=== PATIENT | female | born 1975 | race Caucasian/White ===

== ENCOUNTER 2019-12-12 10:32 | Inpatient (IN) | payer OTHER ==
[2019-12-12] MEDS ORDERED: MORPHINE 4 MG/1 ML INJ IV ONE (11:09)
[2019-12-12] MEDS ORDERED: ONDANSETRON 4 MG/2 ML INJ IV ONE (11:09)
[2019-12-12] MEDS ORDERED: ASPIRIN 325 MG TAB PO ONE (11:10)
[2019-12-12] MEDS ORDERED: SODIUM CHLORIDE 0.9% 1000 ML 1,000 ML IV ONE (11:11)
--- NOTE | 2019-12-12 11:11 | Emergency Department Report ---
HPI - General Chief Complaint: Hyperglycemia Time Seen by Provider: 12/12/19 11:00 - [facility] HPI: Room 20 The patient is a 44-year-old female present with a chief complaint of shortness of breath and chest pain. Patient symptoms began last night with shortness of breath and a constant sharp substernal chest pain. Patient noticed her blood sugar was elevated as well. Patient has been out of her insulin for 3 days. Patient has a cough that is nonproductive. Patient also developed nausea vomiting and diarrhea last night. ED Past Medical Hx - Past Medical History Previous Medical History?: Yes Hx Diabetes: Yes - Surgical History Past Surgical History?: No - Family History Family history: no significant - Social History Smoking Status: Never Smoker Substance Use Type: None - Medications Home Medications: Home Medications Medication Instructions Recorded Confirmed Last Taken Type Famotidine [Pepcid] 20 mg PO BID #60 tablet 10/02/14 Unknown Rx Lisinopril [Zestril] 2.5 mg PO QDAY #30 tablet 10/02/14 Unknown Rx Insulin Aspart Prot/Aspart(Nf) 15 unit SQ BIDDIAB #10 ml 01/09/15 Unknown Rx [NovoLOG Mix 70/30 VIAL] Insulin Glargine [Lantus VIAL] 20 units SUB-Q QAM@0800 #7 units 01/09/15 Unknown Rx ED Review of Systems ROS: Stated complaint: ALESSANDRA Other details as noted in HPI Constitutional: no symptoms reported Eyes: denies: eye pain ENT: denies: throat pain Respiratory: cough, shortness of breath Cardiovascular: chest pain Endocrine: no symptoms reported Gastrointestinal: nausea, vomiting, diarrhea Genitourinary: denies: dysuria Musculoskeletal: denies: back pain Neurological: denies: headache Physical Exam - Physical Exam Vital Signs: Vital Signs 12/12/19 10:37 Temperature 98.0 F Pulse Rate 105 H Respiratory 24 Rate Blood Pressure 95/47 O2 Sat by Pulse 100 Oximetry Physical Exam: GENERAL: The patient is well-developed well-nourished female lying on stretcher not appearing to be in acute distress. [] HEENT: Normocephalic. Atraumatic. Extraocular motions are intact. Patient has moist mucous membranes. NECK: Supple. trachea midline CHEST/LUNGS: Clear to auscultation. There is no respiratory distress noted. HEART/CARDIOVASCULAR: Regular. There is no tachycardia. There is no gallop rub or murmur. ABDOMEN: Abdomen is soft, nontender. Patient has normal bowel sounds. There is no abdominal distention. SKIN: There is no rash. There is no edema. There is no diaphoresis. NEURO: The patient is awake, alert, and oriented. The patient is cooperative. The patient has normal speech MUSCULOSKELETAL: There is no evidence of acute injury. ED Course Vital Signs 12/12/19 10:37 Temperature 98.0 F Pulse Rate 105 H Respiratory 24 Rate Blood Pressure 95/47 O2 Sat by Pulse 100 Oximetry ED Medical Decision Making - Lab Data Result diagrams: 12/12/19 11:09 12/12/19 11:09 Laboratory Tests 12/12/19 12/12/19 12/12/19 11:09 11:09 11:09 WBC 28.8 H RBC 5.55 H Hgb 15.6 H Hct 49.8 H MCV 90 MCH 28 MCHC 31 RDW 14.4 Plt Count 292 VBG pH 7.126 L* Sodium 138 Potassium 4.5 Chloride 91.2 L BUN 26 H Creatinine 1.6 H Estimated GFR 35 BUN/Creatinine Ratio 16 POC Glucose Calcium 10.2 Total Bilirubin 0.30 AST 17 ALT 17 Alkaline Phosphatase 157 H Total Creatine Kinase 159 H CK-MB (CK-2) 5.7 H CK-MB (CK-2) Rel Index 3.5 Troponin T < 0.010 NT-Pro-B Natriuret Pep 156.8 Total Protein 8.3 H Albumin 4.9 Albumin/Globulin Ratio 1.4 12/12/19 11:26 WBC RBC Hgb Hct MCV MCH MCHC RDW Plt Count VBG pH Sodium Potassium Chloride BUN Creatinine Estimated GFR BUN/Creatinine Ratio POC Glucose 500 H Calcium Total Bilirubin AST ALT Alkaline Phosphatase Total Creatine Kinase CK-MB (CK-2) CK-MB (CK-2) Rel Index Troponin T NT-Pro-B Natriuret Pep Total Protein Albumin Albumin/Globulin Ratio - EKG Data -: EKG Interpreted by Me EKG shows normal: sinus rhythm Rate: tachycardia (102 bpm) - EKG Data When compared to previous EKG there are: previous EKG unavailable Interpretation: other (No ischemic changes seen) - Radiology Data Radiology results: report reviewed (Chest x-ray) Chest x-ray (read by radiologist)-no acute abnormality - Differential Diagnosis ACS, DKA, hyperglycemia Critical care attestation.: If time is entered above; I have spent that time in minutes in the direct care of this critically ill patient, excluding procedure time. ED Disposition Clinical Impression: DKA (diabetic ketoacidoses), Leukocytosis, Chest pain Disposition: OP ADMIT IP TO THIS HOSP Is pt being admited?: Yes Does the pt Need Aspirin: Yes Condition: Serious Instructions: Diabetic Ketoacidosis (ED), Chest Pain (ED) Time of Disposition: 11:50 (Hospitalist paged (Dr Kumar))
[2019-12-12 11:27] LABS: Hematocrit 49.8 % (30.3-42.9); Hemoglobin 15.6 gm/dl (10.1-14.3); Mean Corpuscular HGB Conc 31 % (30-34); Mean Corpuscular Volume 90 fl (79-97); Platelet Count 292 K/mm3 (140-440); Red Blood Count 5.55 M/mm3 (3.65-5.03); Red Cell Distribution Width 14.4 % (13.2-15.2)
--- NOTE | 2019-12-12 11:34 | XRay Report ---
CHEST 1 VIEW 11:21 AM INDICATION / CLINICAL INFORMATION: Shortness of breath. COMPARISON: 09/28/14. FINDINGS: SUPPORT DEVICES: None. HEART / MEDIASTINUM: The heart size and pulmonary vasculature are normal. LUNGS / PLEURA: No significant pulmonary or pleural abnormality. No pneumothorax. ADDITIONAL FINDINGS: No significant additional findings. IMPRESSION: No acute abnormality or significant change. Signer Name: Lucian Ferraro MD Signed: 12/12/2019 11:29 AM Workstation Name: [id number]
[2019-12-12 11:39] LABS: Creatine Kinase MB 5.7 ng/mL (0.0-4.0)
[2019-12-12 11:44] LABS: Alanine Aminotransferase 17 units/L (7-56); Albumin 4.9 g/dL (3.9-5); BUN/Creatinine Ratio 16; Blood Urea Nitrogen 26 mg/dL (7-17); Calcium 10.2 mg/dL (8.4-10.2); Hemolysis Index 30
--- NOTE | 2019-12-12 11:54 | History and Physical Report ---
History of Present Illness Chief complaint: I do not feel good History of present illness: 44-year-old female with HTN, DM presents to ED for evaluation. Patient states that she has "not been feeling good" over the past 3 days with worsening symptoms over the past 1 day. Patient states that she ran out of her insulin approximately 3 days ago. Patient reports polydipsia, polyuria, polyphagia, and generalized weakness. Patient also acknowledges nonproductive cough, difficulty breathing, and chest discomfort. Patient acknowledges nausea, and 2 loose stools overnight. Patient transported to [facility] via private vehicle for further evaluation and care. Patient seen and evaluated in the emergency department. Lab and imaging studies reviewed. Patient found to have sepsis, acute kidney injury, metabolic acidosis, with concomitant diabetic ketoacidosis. Patient admitted to ICU and initiated on sepsis and DKA protocols respectively. Patient denies fever, chills, hemoptysis, prolonged travel/interim mobility, unilateral leg swelling, individual/family history of DVT/bleeding/blood clotting disorders. All listed medication reconciled at time of admission. Prior admission on 09/28/2014 reviewed. CTA chest is pending at time of admission. Past History Past Medical History: diabetes, hypertension Past Surgical History: No surgical history, Other (Reviewed) Social history: . denies: smoking, alcohol abuse, prescription drug abuse Family history: diabetes, hypertension Medications and Allergies Allergies Allergy/AdvReac Type Severity Reaction Status Date / Time No Known Allergies Allergy Unverified 09/28/14 19:54 Home Medications Medication Instructions Recorded Confirmed Last Taken Type Lisinopril [Zestril] 2.5 mg PO QDAY #30 tablet 10/02/14 12/12/19 Unknown Rx Insulin Aspart Prot/Aspart(Nf) 15 unit SQ BIDDIAB #10 ml 01/09/15 12/12/19 Unknown Rx [NovoLOG Mix 70/30 VIAL] Insulin Glargine [Lantus VIAL] 20 units SUB-Q QAM@0800 #7 units 01/09/15 12/12/19 Unknown Rx Active Meds: Active Medications Sodium Chloride (Nacl 0.9% 1000 Ml) 1,000 mls @ 999 mls/hr IV ONCE ONE Stop: 12/12/19 12:11 Last Admin: 12/12/19 11:41 Dose: 999 mls/hr Documented by: Insulin Human Regular 100 (units/ Sodium Chloride) 100 mls @ 5 mls/hr IV TITR ADOLFO; Protocol Review of Systems Constitutional: weakness, other (Feeling sick) Ears, nose, mouth and throat: no ear pain, no ear discharge, no tinnitis, no decreased hearing, no nose pain Breasts: no change in shape, no swelling, no mass Cardiovascular: no chest pain, no orthopnea, no palpitations, no rapid/irregular heart beat Respiratory: cough, shortness of breath Gastrointestinal: nausea, vomiting, no change in bowel habits, no hematemesis, no coffee ground emesis Genitourinary Female: no pelvic pain, no flank pain, no dysuria, no urinary frequency, no urgency Rectal: no pain, no incontinence, no bleeding Musculoskeletal: no neck stiffness, no neck pain, no shooting arm pain, no arm numbness/tingling, no leg numbness/tingling Integumentary: no rash, no redness, no sores, no jaundice Neurological: no head injury, no transient paralysis, no paralysis, no weakness, no parathesias, no numbness, no tingling, no seizures, no syncope Psychiatric: no anxiety, no memory loss, no sleep disturbances, no insomnia, no change in appetite, no change in libido, no suicidal ideation Endocrine: no cold intolerance, no polyphagia, no excessive thirst, no polyuria, no excessive sweating Hematologic/Lymphatic: no easy bruising, no easy bleeding, no lymphadenopathy Allergic/Immunologic: no urticaria, no persistent infections, no anaphylaxis, no angioedema Exam - Constitutional Vitals: Temp Pulse Resp BP Pulse Ox 98.0 F 105 H 15 95/47 100 12/12/19 10:37 12/12/19 10:37 12/12/19 11:40 12/12/19 10:37 12/12/19 10:37 General appearance: Present: mild distress - EENT Eyes: Present: PERRL ENT: hearing intact, clear oral mucosa - Neck Neck: Present: supple, normal ROM - Respiratory Respiratory effort: normal Respiratory: bilateral: CTA - Cardiovascular Rhythm: other (Tachycardia) Heart Sounds: Present: S1 & S2. Absent: rub, click - Extremities Extremities: pulses symmetrical, No edema Peripheral Pulses: abnormal (Capillary refill greater than 3.5 seconds) - Abdominal General gastrointestinal: Present: soft, non-tender, non-distended, normal bowel sounds Female genitourinary: Present: normal - Integumentary Integumentary: Present: clear, warm, dry - Musculoskeletal Musculoskeletal: generalized weakness - Psychiatric Psychiatric: appropriate mood/affect, intact judgment & insight - Neurologic Neurologic: CNII-XII intact, moves all extremities Results - Labs CBC & Chem 7: 12/12/19 11:09 12/12/19 12:01 Labs: Abnormal lab results 12/12/19 12/12/19 12/12/19 Range/Units 11:09 11:09 11:09 WBC 28.8 H (4.5-11.0) K/mm3 RBC 5.55 H (3.65-5.03) M/mm3 Hgb 15.6 H (10.1-14.3) gm/dl Hct 49.8 H (30.3-42.9) % VBG pH 7.126 L* (7.320-7.420) Chloride 91.2 L (98-107) mmol/L Carbon Dioxide 5 L* (22-30) mmol/L BUN 26 H (7-17) mg/dL Creatinine 1.6 H (0.7-1.2) mg/dL Glucose 704 H* (65-100) mg/dL POC Glucose (70-105) Alkaline Phosphatase 157 H (35-129) units/L Total Creatine Kinase 159 H (30-135) units/L CK-MB (CK-2) 5.7 H (0.0-4.0) ng/mL Total Protein 8.3 H (6.3-8.2) g/dL 12/12/19 Range/Units 11:26 WBC (4.5-11.0) K/mm3 RBC (3.65-5.03) M/mm3 Hgb (10.1-14.3) gm/dl Hct (30.3-42.9) % VBG pH (7.320-7.420) Chloride (98-107) mmol/L Carbon Dioxide (22-30) mmol/L BUN (7-17) mg/dL Creatinine (0.7-1.2) mg/dL Glucose (65-100) mg/dL POC Glucose 500 H (70-105) Alkaline Phosphatase (35-129) units/L Total Creatine Kinase (30-135) units/L CK-MB (CK-2) (0.0-4.0) ng/mL Total Protein (6.3-8.2) g/dL Assessment and Plan - Patient Problems (1) Sepsis Current Visit: Yes Status: Acute Plan to address problem: Sepsis protocol: Admit to ICU, IV antibiotic therapy, CBC, CMP, chest x-ray, urinalysis, serial lactic acid level, monitor urine output every shift, maintain mean arterial blood pressure greater than or equal to 65, IV fluid resuscitation therapy, repeat CBC and BMP in a.m. The high probability of a clinically significant, sudden or life threatening deterioration of the [endocrine, cardiac, renal, pulmonary] system(s) required my full and direct attention, intervention and personal management. The aggregate critical care time was [65] minutes. This time is in addition to time spent performing reported procedures but includes the following: [x] Data Review and interpretation [x] Patient assessment and monitoring of vital signs [x] Documentation [x] Medication orders and management (2) DKA (diabetic ketoacidoses) Current Visit: No Status: Acute Qualifiers: Diabetes mellitus type: type 1 Plan to address problem: DKA protocol: Admit to ICU, IV fluid resuscitation therapy, insulin drip, serial BMP, monitor anion gap, monitor serum potassium, (3) Noncompliance with medication regimen Current Visit: Yes Status: Acute Plan to address problem: Patient counseled regarding medication noncompliance. Patient informed of increased risk of worsening symptoms, end organ damage, and even . Patient knowledges understanding instructions. (4) Acute kidney injury Current Visit: Yes Status: Acute Plan to address problem: IV fluid resuscitation therapy, monitor urine output every shift, BMP, repeat BMP in a.m. to monitor serum creatinine. (5) Metabolic acidosis Current Visit: Yes Status: Acute Plan to address problem: IV fluid resuscitation therapy, treat DKA, treat sepsis, serial lactic acid level. (6) DVT prophylaxis Current Visit: No Status: Acute Plan to address problem: SCD to bilateral lower extremities while in bed, prophylactic heparin.
[2019-12-12] MEDS ORDERED: SODIUM CHLORIDE 0.9% 1000 ML IV SOLN IV ONE (11:59)
[2019-12-12 12:56] LABS: Calcium 9.7 mg/dL (8.4-10.2)
[2019-12-12] MEDS ORDERED: cefTRIAXone/NS 1 GM/50 ML 1 GM/50 ML BAG IV ONE (12:59)
[2019-12-12] MEDS: cefTRIAXone/NS 1 GM/50 ML 1 GM/50 ML BAG IV SCH (13:00)
[2019-12-12] MEDS ORDERED: SODIUM BICARB 8.4% 50 MEQ/50 ML VIAL IV ONE (13:00)
[2019-12-12] MEDS: INSULIN REGULAR, HUMAN 100 UNITS in SODIUM CHLORIDE 0.9% 99 ML IV SCH (13:49)
[2019-12-12] MEDS ORDERED: SODIUM CHLORIDE 0.9% 1000 ML 1,000 ML IV SCH (15:00)
[2019-12-12 15:18] LABS: Calcium 8.3 mg/dL (8.4-10.2)
--- NOTE | 2019-12-12 15:27 | Consultation ---
History of Present Illness Consult date: 12/12/19 Requesting physician: FLAVIO LONGO Reason for consult: other (CRITICAL CARE-DKA) History of present illness: 44-year-old female with HTN, DM presents to ED for evaluation. Patient states that she has "not been feeling good" over the past 3 days with worsening symptoms over the past 1 day. Patient states that she ran out of her insulin approximately 3 days ago. Patient reports polydipsia, polyuria, polyphagia, and generalized weakness. Patient also acknowledges nonproductive cough, difficulty breathing, and chest discomfort. Patient acknowledges nausea, and 2 loose stools overnight. Patient transported to [facility] via private vehicle for further evaluation and care. Patient seen and evaluated in the emergency department. Lab and imaging studies reviewed. Patient found to have sepsis, acute kidney injury, metabolic acidosis, with concomitant diabetic ketoacidosis. Patient admitted to ICU and initiated on sepsis and DKA protocols respectively. Patient denies fever, chills, hemoptysis, prolonged travel/interim mobility, unilateral leg swelling, individual/family history of DVT/bleeding/blood clotting disorders. She has been admitted to the ICU for management of DKA and I have been consulted fro critical care management. Thank you. Patient was seen and examined. Vitals, labs, medications, chart reviewed. ROS: Stated complaint: ALESSANDRA Other details as noted in HPI Constitutional: no symptoms reported Eyes: denies: eye pain ENT: denies: throat pain Respiratory: cough, shortness of breath Cardiovascular: chest pain Endocrine: no symptoms reported Gastrointestinal: nausea, vomiting, diarrhea Genitourinary: denies: dysuria Musculoskeletal: denies: back pain Neurological: denies: headache Past History Past Medical History: diabetes, hypertension Past Surgical History: No surgical history, Other (Reviewed) Social history: . denies: smoking, alcohol abuse, prescription drug abuse Family history: diabetes, hypertension Medications and Allergies Allergies Allergy/AdvReac Type Severity Reaction Status Date / Time No Known Allergies Allergy Unverified 09/28/14 19:54 Home Medications Medication Instructions Recorded Confirmed Last Taken Type Lisinopril [Zestril] 2.5 mg PO QDAY #30 tablet 10/02/14 12/12/19 Unknown Rx Insulin Aspart Prot/Aspart(Nf) 15 unit SQ BIDDIAB #10 ml 01/09/15 12/12/19 Unknown Rx [NovoLOG Mix 70/30 VIAL] Insulin Glargine [Lantus VIAL] 20 units SUB-Q QAM@0800 #7 units 01/09/15 12/12/19 Unknown Rx Active Meds: Active Medications Famotidine (Pepcid) 20 mg PO BID ADOLFO Heparin Sodium (Porcine) (Heparin) 5,000 unit SUB-Q Q12HR ADOLFO Insulin Human Regular 100 (units/ Sodium Chloride) 100 mls @ 5 mls/hr IV TITR ADOLFO; Protocol Last Titration: 12/12/19 14:30 Dose: 7 units/hr, 7 mls/hr Documented by: Ceftriaxone Sodium (Rocephin/Ns 1 Gm/50 Ml) 1 gm in 50 mls @ 100 mls/hr IV Q24H ADOLFO; Protocol Stop: 12/14/19 13:29 Last Admin: 12/12/19 13:00 Dose: 100 mls/hr Documented by: Sodium Chloride (Nacl 0.9% 1000 Ml) 1,000 mls @ 125 mls/hr IV DIRECT ADOLFO Last Admin: 12/12/19 14:57 Dose: 125 mls/hr Documented by: Dextrose/Sodium Chloride (D5/0.45ns) 1,000 mls @ 125 mls/hr IV DIRECT ADOLFO Sodium Chloride (Sodium Chloride Flush Syringe 10 Ml) 10 ml IV BID ADOLFO Sodium Chloride (Sodium Chloride Flush Syringe 10 Ml) 10 ml IV PRN PRN PRN Reason: LINE FLUSH Physical Examination Vital signs: Vital Signs Temp Pulse Resp BP Pulse Ox 98.0 F 105 H 24 95/47 100 12/12/19 10:37 12/12/19 10:37 12/12/19 10:37 12/12/19 10:37 12/12/19 10:37 Vitals, reviewed. General appearance: Present: no distress - EENT Eyes: Present: PERRL ENT: hearing intact, clear oral mucosa - Neck Neck: Present: supple, normal ROM - Respiratory Respiratory effort: normal Respiratory: bilateral: CTA - Cardiovascular Rhythm: other (Tachycardia) Heart Sounds: Present: S1 & S2. Absent: rub, click - Extremities Extremities: pulses symmetrical, No edema Peripheral Pulses: abnormal (Capillary refill greater than 3.5 seconds) - Abdominal General gastrointestinal: Present: soft, non-tender, non-distended, normal bowel sounds Female genitourinary: Present: normal - Integumentary Integumentary: Present: clear, warm, dry - Musculoskeletal Musculoskeletal: generalized weakness - Psychiatric Psychiatric: appropriate mood/affect - Neurologic Neurologic: Moves all extremities Results - Laboratory Findings CBC and BMP: 12/13/19 05:26 12/14/19 05:42 Abnormal lab findings: Abnormal Labs 12/12/19 12/12/19 12/12/19 10:50 11:09 11:09 WBC 28.8 H RBC 5.55 H Hgb 15.6 H Hct 49.8 H VBG pH Chloride 91.2 L Carbon Dioxide 5 L* BUN 26 H Creatinine 1.6 H Glucose 704 H* POC Glucose 492 H Lactic Acid Calcium Phosphorus Alkaline Phosphatase 157 H Total Creatine Kinase 159 H CK-MB (CK-2) 5.7 H Total Protein 8.3 H 12/12/19 12/12/19 12/12/19 11:09 11:26 12:01 WBC RBC Hgb Hct VBG pH 7.126 L* Chloride Carbon Dioxide BUN Creatinine Glucose POC Glucose 500 H Lactic Acid Calcium Phosphorus 6.90 H Alkaline Phosphatase Total Creatine Kinase CK-MB (CK-2) Total Protein 12/12/19 12/12/19 12/12/19 12:01 12:04 14:24 WBC RBC Hgb Hct VBG pH Chloride 95.6 L Carbon Dioxide 5 L* BUN 26 H Creatinine 1.4 H Glucose 653 H* POC Glucose 443 H Lactic Acid 3.00 H* Calcium Phosphorus Alkaline Phosphatase Total Creatine Kinase CK-MB (CK-2) Total Protein 12/12/19 12/12/19 12/12/19 14:38 14:38 14:52 WBC RBC Hgb Hct VBG pH Chloride Carbon Dioxide 6 L* BUN 23 H Creatinine Glucose 427 H POC Glucose 371 H Lactic Acid 2.10 H* Calcium 8.3 L Phosphorus Alkaline Phosphatase Total Creatine Kinase CK-MB (CK-2) Total Protein - Diagnostic Findings Chest x-ray: image reviewed CT scan - chest: report reviewed (Normal study, no PE) Assessment and Plan (1) Sepsis Current Visit: Yes Status: Acute Plan to address problem: Sepsis protocol:Continue with ICU admission. IV antibiotic therapy( follow cu ltures, RACHID and sensitivities- deescalate based on results), CBC, CMP, chest x- ray, urinalysis, serial lactic acid level, monitor urine output every shift, maintain mean arterial blood pressure greater than or equal to 65, IV fluid resuscitation therapy, repeat CBC and BMP in a.m. The high probability of a clinically significant, sudden or life threatening deterioration of the [endocrine, cardiac, renal, pulmonary] system(s) required my full and direct attention, intervention and personal management. The aggregate critical care time was [30] minutes. This time is in addition to time spent performing reported procedures but includes the following: [x] Data Review and interpretation [x] Patient assessment and monitoring of vital signs [x] Documentation [x] Medication orders and management (2) DKA (diabetic ketoacidosis) Current Visit: No Status: Acute Qualifiers: Diabetes mellitus type: type 1 Plan to address problem: DKA protocol: Admit to ICU, IV fluid resuscitation therapy, insulin drip, serial BMP, monitor anion gap, monitor serum potassium, Replace all electrolytes per protocol Once her gap closes switch to weight based/bolus insulin therapy and initiate oral steady carb diet (3) Noncompliance with medication regimen Current Visit: Yes Status: Acute Plan to address problem: Patient counseled regarding medication noncompliance. Patient informed of increased risk of worsening symptoms, end organ damage, and even . Patient knowledges understanding instructions. Change lantus to 70/30 Case management/nephrology social worker to assist with medication management (4) Acute kidney injury Current Visit: Yes Status: Acute Plan to address problem: IV fluid resuscitation therapy, monitor urine output every shift, BMP, repeat BMP in a.m. to monitor serum creatinine. (5) Metabolic acidosis Current Visit: Yes Status: Acute Plan to address problem: IV fluid resuscitation therapy, treat DKA, treat sepsis, serial lactic acid level. (6) DVT prophylaxis Current Visit: No Status: Acute Plan to address problem: SCD to bilateral lower extremities while in bed, prophylactic heparin.
[2019-12-12 16:28] LABS: Bilirubin,Urine NEG (Negative); Blood,Urine MOD (Negative); Color,Urine Straw (Yellow); Mucus,Urine FEW /HPF; Protein,Urine <15 mg/dL mg/dL (Negative); Urobilinogen,Urine < 2.0 mg/dL (<2.0); WBC,Urine < 1.0 /HPF (0.0-6.0)
[2019-12-12 17:04] LABS: Calcium 8.6 mg/dL (8.4-10.2)
[2019-12-12] MEDS: ONDANSETRON 4 MG/2 ML INJ IV PRN ×2 (17:14→22:27)
[2019-12-12] MEDS: D5W/0.45% NACL 1,000 ML IV SCH ×2 (17:19→22:27)
[2019-12-12] MEDS ORDERED: SODIUM CHLORIDE 0.9% 1000 ML 2,000 ML IV ONE (19:00)
[2019-12-12 20:11] LABS: BUN/Creatinine Ratio 17; Blood Urea Nitrogen 17 mg/dL (7-17); Calcium 8.2 mg/dL (8.4-10.2); Hemolysis Index 8
[2019-12-12] MEDS ORDERED: FAMOTIDINE 20 MG TAB PO SCH (22:00)
[2019-12-12 22:24] LABS: BUN/Creatinine Ratio 16; Blood Urea Nitrogen 14 mg/dL (7-17); Calcium 8.1 mg/dL (8.4-10.2); Hemolysis Index 4
[2019-12-12] MEDS: HEPARIN 5,000 UNIT/1 ML VIAL SUB-Q SCH (22:27)
--- NOTE | 2019-12-12 23:58 | Cat Scan Report ---
CTA CHEST WITH IV CONTRAST INDICATION / CLINICAL INFORMATION: MAIN: WEAKNESS, CHEST PAIN, SOB. 100 ML OMNIPAQUE 350. TECHNIQUE: Axial CT images were obtained through the chest after injection of 100 mL IV contrast. 3 plane MIP an d/or 3D reconstructions were produced. All CT scans at this location are performed using CT dose redu ction for [facility] by means of automated exposure control. COMPARISON: Chest radiograph earlier today. FINDINGS: PULMONARY ARTERIES: No pulmonary emboli. THORACIC AORTA: No significant abnormality. HEART: No significant abnormality. CORONARY ARTERIES: No significant calcification. PLEURA: No pleural effusion. No pneumothorax. LYMPH NODES: No significant adenopathy. LUNGS: No acute air space or interstitial disease. ADDITIONAL FINDINGS: None. UPPER ABDOMEN: No acute findings. SKELETAL STRUCTURES: No significant osseous abnormality. IMPRESSION: 1. No CT evidence for pulmonary embolism. 2. No acute findings. Signer Name: Shalini Richmond MD Signed: 12/12/2019 11:53 PM Workstation Name: [id number]
[2019-12-13 05:37] LABS: Hematocrit 38.8 % (30.3-42.9); Hemoglobin 12.9 gm/dl (10.1-14.3); Mean Corpuscular HGB Conc 33 % (30-34); Mean Corpuscular Volume 84 fl (79-97); Platelet Count 237 K/mm3 (140-440); Red Cell Distribution Width 14.1 % (13.2-15.2)
[2019-12-13 06:11] LABS: BUN/Creatinine Ratio 10; Blood Urea Nitrogen 7 mg/dL (7-17); Calcium 8.3 mg/dL (8.4-10.2); Hemolysis Index 13
[2019-12-13 06:53] LABS: Band Neutrophils # (Manual) 0.2 K/mm3; Basophils % (Manual) 0 % (0.0-1.8); Eosinophils % (Manual) 0 % (0.0-4.3); Total Cells Counted 100
[2019-12-13 06:54] LABS: Ovalocytes Rare; Platelet Estimate Consistent w Auto
[2019-12-13] MEDS: ONDANSETRON 4 MG/2 ML INJ IV PRN ×3 (08:17→23:28)
[2019-12-13] MEDS: D5W/0.45% NACL/KCL 20 MEQ 20 MEQ/1,000 ML BAG IV SCH ×2 (09:40→23:19)
[2019-12-13] MEDS: HEPARIN 5,000 UNIT/1 ML VIAL SUB-Q SCH ×2 (09:43→22:05)
[2019-12-13] MEDS: POTASSIUM CHLORIDE 10 MEQ 10 MEQ/100 ML BAG IV SCH ×7 (09:43→18:44)
[2019-12-13] MEDS: FAMOTIDINE 20 MG/2 ML INJ IV SCH ×2 (09:44→22:05)
--- NOTE | 2019-12-13 11:10 | Progress Note ---
Subjective Date of service: 12/13/19 Objective Vital Signs - 12hr 12/12/19 12/13/19 12/13/19 23:18 00:00 01:00 Temperature 99.3 F Pulse Rate 81 76 74 Pulse Rate [ From Monitor] Respiratory 29 H 22 15 Rate Blood Pressure 115/46 110/46 O2 Sat by Pulse 100 100 100 Oximetry 12/13/19 12/13/19 12/13/19 02:00 03:00 04:00 Temperature 98.4 F Pulse Rate 73 81 74 Pulse Rate [ From Monitor] Respiratory 15 13 17 Rate Blood Pressure 106/48 106/48 117/59 O2 Sat by Pulse 99 100 99 Oximetry 12/13/19 12/13/19 12/13/19 05:00 06:00 07:00 Temperature Pulse Rate 73 73 66 Pulse Rate [ From Monitor] Respiratory 11 L 12 16 Rate Blood Pressure 104/50 126/61 117/59 O2 Sat by Pulse 99 100 100 Oximetry 12/13/19 12/13/19 12/13/19 08:00 09:00 10:00 Temperature 98.8 F Pulse Rate 70 69 67 Pulse Rate [ 66 From Monitor] Respiratory 13 19 16 Rate Blood Pressure 130/58 130/58 137/64 O2 Sat by Pulse 100 100 99 Oximetry CBC and BMP: 12/13/19 05:26 12/13/19 05:26 Abnormal lab findings: Abnormal Labs 12/12/19 12/12/19 12/12/19 10:50 11:09 11:09 WBC 28.8 H RBC 5.55 H Hgb 15.6 H Hct 49.8 H Seg Neuts % (Manual) Lymphocytes % (Manual) Seg Neutrophils # Man Lymphocytes # (Manual) Monocytes # (Manual) VBG pH Sodium Potassium Chloride 91.2 L Carbon Dioxide 5 L* BUN 26 H Creatinine 1.6 H Glucose 704 H* POC Glucose 492 H Lactic Acid Calcium Phosphorus Alkaline Phosphatase 157 H Total Creatine Kinase 159 H CK-MB (CK-2) 5.7 H Total Protein 8.3 H 12/12/19 12/12/19 12/12/19 11:09 11:26 12:01 WBC RBC Hgb Hct Seg Neuts % (Manual) Lymphocytes % (Manual) Seg Neutrophils # Man Lymphocytes # (Manual) Monocytes # (Manual) VBG pH 7.126 L* Sodium Potassium Chloride Carbon Dioxide BUN Creatinine Glucose POC Glucose 500 H Lactic Acid Calcium Phosphorus 6.90 H Alkaline Phosphatase Total Creatine Kinase CK-MB (CK-2) Total Protein 12/12/19 12/12/19 12/12/19 12:01 12:04 14:24 WBC RBC Hgb Hct Seg Neuts % (Manual) Lymphocytes % (Manual) Seg Neutrophils # Man Lymphocytes # (Manual) Monocytes # (Manual) VBG pH Sodium Potassium Chloride 95.6 L Carbon Dioxide 5 L* BUN 26 H Creatinine 1.4 H Glucose 653 H* POC Glucose 443 H Lactic Acid 3.00 H* Calcium Phosphorus Alkaline Phosphatase Total Creatine Kinase CK-MB (CK-2) Total Protein 12/12/19 12/12/19 12/12/19 14:38 14:38 14:52 WBC RBC Hgb Hct Seg Neuts % (Manual) Lymphocytes % (Manual) Seg Neutrophils # Man Lymphocytes # (Manual) Monocytes # (Manual) VBG pH Sodium Potassium Chloride Carbon Dioxide 6 L* BUN 23 H Creatinine Glucose 427 H POC Glucose 371 H Lactic Acid 2.10 H* Calcium 8.3 L Phosphorus Alkaline Phosphatase Total Creatine Kinase CK-MB (CK-2) Total Protein 12/12/19 12/12/19 12/12/19 16:09 16:28 16:28 WBC RBC Hgb Hct Seg Neuts % (Manual) Lymphocytes % (Manual) Seg Neutrophils # Man Lymphocytes # (Manual) Monocytes # (Manual) VBG pH Sodium 146 H Potassium Chloride 107.7 H Carbon Dioxide 7 L* BUN 20 H Creatinine Glucose 279 H POC Glucose 268 H Lactic Acid 2.10 H* Calcium Phosphorus Alkaline Phosphatase Total Creatine Kinase CK-MB (CK-2) Total Protein 12/12/19 12/12/19 12/12/19 16:56 17:51 18:40 WBC RBC Hgb Hct Seg Neuts % (Manual) Lymphocytes % (Manual) Seg Neutrophils # Man Lymphocytes # (Manual) Monocytes # (Manual) VBG pH Sodium Potassium Chloride Carbon Dioxide BUN Creatinine Glucose POC Glucose 214 H 194 H 176 H Lactic Acid Calcium Phosphorus Alkaline Phosphatase Total Creatine Kinase CK-MB (CK-2) Total Protein 12/12/19 12/12/19 12/12/19 19:38 20:06 20:35 WBC RBC Hgb Hct Seg Neuts % (Manual) Lymphocytes % (Manual) Seg Neutrophils # Man Lymphocytes # (Manual) Monocytes # (Manual) VBG pH Sodium Potassium Chloride 111.4 H Carbon Dioxide 10 L BUN Creatinine Glucose 212 H POC Glucose 175 H 194 H Lactic Acid Calcium 8.2 L Phosphorus Alkaline Phosphatase Total Creatine Kinase CK-MB (CK-2) Total Protein 12/12/19 12/12/19 12/12/19 21:09 21:31 22:16 WBC RBC Hgb Hct Seg Neuts % (Manual) Lymphocytes % (Manual) Seg Neutrophils # Man Lymphocytes # (Manual) Monocytes # (Manual) VBG pH Sodium Potassium Chloride 111.2 H Carbon Dioxide 12 L BUN Creatinine Glucose 210 H POC Glucose 197 H 176 H Lactic Acid Calcium 8.1 L Phosphorus Alkaline Phosphatase Total Creatine Kinase CK-MB (CK-2) Total Protein 12/12/19 12/12/19 12/13/19 23:32 23:48 01:16 WBC RBC Hgb Hct Seg Neuts % (Manual) Lymphocytes % (Manual) Seg Neutrophils # Man Lymphocytes # (Manual) Monocytes # (Manual) VBG pH Sodium Potassium Chloride Carbon Dioxide BUN Creatinine Glucose POC Glucose 160 H 149 H 168 H Lactic Acid Calcium Phosphorus Alkaline Phosphatase Total Creatine Kinase CK-MB (CK-2) Total Protein 12/13/19 12/13/19 12/13/19 02:23 03:16 04:09 WBC RBC Hgb Hct Seg Neuts % (Manual) Lymphocytes % (Manual) Seg Neutrophils # Man Lymphocytes # (Manual) Monocytes # (Manual) VBG pH Sodium Potassium Chloride Carbon Dioxide BUN Creatinine Glucose POC Glucose 184 H 161 H 165 H Lactic Acid Calcium Phosphorus Alkaline Phosphatase Total Creatine Kinase CK-MB (CK-2) Total Protein 12/13/19 12/13/19 12/13/19 05:20 05:26 05:26 WBC 20.9 H RBC Hgb Hct Seg Neuts % (Manual) 91.0 H Lymphocytes % (Manual) 3.0 L Seg Neutrophils # Man 19.0 H Lymphocytes # (Manual) 0.6 L Monocytes # (Manual) 1.0 H VBG pH Sodium Potassium 3.1 L Chloride 109.3 H Carbon Dioxide 17 L BUN Creatinine Glucose 165 H POC Glucose 143 H Lactic Acid Calcium 8.3 L Phosphorus Alkaline Phosphatase Total Creatine Kinase CK-MB (CK-2) Total Protein 12/13/19 12/13/19 12/13/19 06:05 07:16 07:54 WBC RBC Hgb Hct Seg Neuts % (Manual) Lymphocytes % (Manual) Seg Neutrophils # Man Lymphocytes # (Manual) Monocytes # (Manual) VBG pH Sodium Potassium Chloride Carbon Dioxide BUN Creatinine Glucose POC Glucose 140 H 140 H 154 H Lactic Acid Calcium Phosphorus Alkaline Phosphatase Total Creatine Kinase CK-MB (CK-2) Total Protein 12/13/19 12/13/19 12/13/19 08:25 09:50 10:39 WBC RBC Hgb Hct Seg Neuts % (Manual) Lymphocytes % (Manual) Seg Neutrophils # Man Lymphocytes # (Manual) Monocytes # (Manual) VBG pH Sodium Potassium Chloride Carbon Dioxide BUN Creatinine Glucose POC Glucose 162 H 127 H 122 H Lactic Acid Calcium Phosphorus Alkaline Phosphatase Total Creatine Kinase CK-MB (CK-2) Total Protein
[2019-12-13] MEDS: INSULIN REGULAR, HUMAN 100 UNITS in SODIUM CHLORIDE 0.9% 99 ML IV SCH (11:34)
[2019-12-13] MEDS ORDERED: FLU VACC QUAD 2019-20 (3 YR UP)/PF 60 MCG/0.5 ML SYRINGE IM ONE (12:00)
[2019-12-13] MEDS ORDERED: PNEUMOCOCCAL 23 Valent 0.5 ML VIAL IM ONE (12:00)
[2019-12-13 12:03] LABS: BUN/Creatinine Ratio 10; Blood Urea Nitrogen 6 mg/dL (7-17); Calcium 8.3 mg/dL (8.4-10.2); Hemolysis Index 15
[2019-12-13] MEDS: cefTRIAXone/NS 1 GM/50 ML 1 GM/50 ML BAG IV SCH (13:34)
[2019-12-13] MEDS ORDERED: POTASSIUM CHLORIDE ER 20 MEQ TAB PO ONE (15:48)
--- NOTE | 2019-12-13 15:51 | Progress Note ---
Assessment and Plan / SIRS - with organ dysfunction OSMAN due to DKA blood cx negative, monitor off abx for now / DKA (diabetic ketoacidoses) DKA protocol: monitor at ICU, IV fluid resuscitation therapy, insulin drip, serial BMP, monitor anion gap, monitor serum potassium, / Noncompliance with medication regimen Patient counseled regarding medication noncompliance. Patient informed of increased risk of worsening symptoms, end organ damage, and even . Patient knowledges understanding instructions. /hypokalemia, cont to replete, monitor BMP, normal mg / Acute kidney injury, due to vasomotor nephropathy Cr was 1.6 on admission IV fluid resuscitation therapy, monitor urine output every shift, repeat BMP in a.m. to monitor serum creatinine. / Metabolic acidosis IV fluid resuscitation therapy, treat DKA, / DVT prophylaxis SCD to bilateral lower extremities while in bed, prophylactic heparin. The high probability of a clinically significant, sudden or life threatening deterioration of the [multiple] system(s) required my full and direct attention, intervention and personal management. The aggregate critical care time was [32] minutes. This time is in addition to time spent performing reported procedures but includes the following: [x] Data Review and interpretation [x] Patient assessment and monitoring of vital signs [x] Documentation [x] Medication orders and management Subjective Date of service: 12/13/19 Interval history: Patient seen and examined Still has high anion gap, on insulin drip, on D5NS - keep NPO Patient states that she ran out of medication Objective - Constitutional Vitals: Vital Signs - 12hr 12/13/19 12/13/19 12/13/19 04:00 05:00 06:00 Temperature 98.4 F Pulse Rate 74 73 73 Pulse Rate [ From Monitor] Respiratory 17 11 L 12 Rate Blood Pressure 117/59 104/50 126/61 O2 Sat by Pulse 99 99 100 Oximetry 12/13/19 12/13/19 12/13/19 07:00 08:00 09:00 Temperature 98.8 F Pulse Rate 66 70 69 Pulse Rate [ 66 From Monitor] Respiratory 16 13 19 Rate Blood Pressure 117/59 130/58 130/58 O2 Sat by Pulse 100 100 100 Oximetry 12/13/19 12/13/19 12/13/19 10:00 11:00 12:00 Temperature 98.7 F Pulse Rate 66 65 81 Pulse Rate [ 64 From Monitor] Respiratory 16 19 20 Rate Blood Pressure 137/64 116/48 130/55 O2 Sat by Pulse 99 100 98 Oximetry 12/13/19 12/13/19 13:00 14:00 Temperature Pulse Rate 66 67 Pulse Rate [ From Monitor] Respiratory 17 34 H Rate Blood Pressure 133/62 130/68 O2 Sat by Pulse 100 100 Oximetry General appearance: Present: no acute distress, well-nourished - EENT Eyes: PERRL, EOM intact ENT: hearing intact, clear oral mucosa Ears: bilateral: normal - Neck Neck: supple, normal ROM - Respiratory Respiratory effort: normal Respiratory: bilateral: CTA - Cardiovascular Rhythm: regular Heart Sounds: Present: S1 & S2. Absent: gallop, rub Extremities: pulses intact, No edema, normal color, Full ROM - Gastrointestinal General gastrointestinal: Present: soft, non-tender, non-distended, normal bowel sounds - Integumentary Integumentary: clear, warm, dry - Musculoskeletal Musculoskeletal: 1, strength equal bilaterally - Neurologic Neurologic: moves all extremities - Psychiatric Psychiatric: memory intact, appropriate mood/affect, intact judgment & insight - Labs CBC & Chem 7: 12/15/19 06:52 12/15/19 06:52 Labs: Abnormal lab results 12/12/19 12/12/19 12/12/19 Range/Units 16:09 16:28 16:28 WBC (4.5-11.0) K/mm3 Seg Neuts % (Manual) (40.0-70.0) % Lymphocytes % (Manual) (13.4-35.0) % Seg Neutrophils # Man (1.8-7.7) K/mm3 Lymphocytes # (Manual) (1.2-5.4) K/mm3 Monocytes # (Manual) (0.0-0.8) K/mm3 Sodium 146 H (137-145) mmol/L Potassium (3.6-5.0) mmol/L Chloride 107.7 H (98-107) mmol/L Carbon Dioxide 7 L* (22-30) mmol/L BUN 20 H (7-17) mg/dL Creatinine (0.7-1.2) mg/dL Glucose 279 H (65-100) mg/dL POC Glucose 268 H (70-105) Lactic Acid 2.10 H* (0.7-2.0) mmol/L Calcium (8.4-10.2) mg/dL 12/12/19 12/12/19 12/12/19 Range/Units 16:56 17:51 18:40 WBC (4.5-11.0) K/mm3 Seg Neuts % (Manual) (40.0-70.0) % Lymphocytes % (Manual) (13.4-35.0) % Seg Neutrophils # Man (1.8-7.7) K/mm3 Lymphocytes # (Manual) (1.2-5.4) K/mm3 Monocytes # (Manual) (0.0-0.8) K/mm3 Sodium (137-145) mmol/L Potassium (3.6-5.0) mmol/L Chloride (98-107) mmol/L Carbon Dioxide (22-30) mmol/L BUN (7-17) mg/dL Creatinine (0.7-1.2) mg/dL Glucose (65-100) mg/dL POC Glucose 214 H 194 H 176 H (70-105) Lactic Acid (0.7-2.0) mmol/L Calcium (8.4-10.2) mg/dL 12/12/19 12/12/19 12/12/19 Range/Units 19:38 20:06 20:35 WBC (4.5-11.0) K/mm3 Seg Neuts % (Manual) (40.0-70.0) % Lymphocytes % (Manual) (13.4-35.0) % Seg Neutrophils # Man (1.8-7.7) K/mm3 Lymphocytes # (Manual) (1.2-5.4) K/mm3 Monocytes # (Manual) (0.0-0.8) K/mm3 Sodium (137-145) mmol/L Potassium (3.6-5.0) mmol/L Chloride 111.4 H (98-107) mmol/L Carbon Dioxide 10 L (22-30) mmol/L BUN (7-17) mg/dL Creatinine (0.7-1.2) mg/dL Glucose 212 H (65-100) mg/dL POC Glucose 175 H 194 H (70-105) Lactic Acid (0.7-2.0) mmol/L Calcium 8.2 L (8.4-10.2) mg/dL 12/12/19 12/12/19 12/12/19 Range/Units 21:09 21:31 22:16 WBC (4.5-11.0) K/mm3 Seg Neuts % (Manual) (40.0-70.0) % Lymphocytes % (Manual) (13.4-35.0) % Seg Neutrophils # Man (1.8-7.7) K/mm3 Lymphocytes # (Manual) (1.2-5.4) K/mm3 Monocytes # (Manual) (0.0-0.8) K/mm3 Sodium (137-145) mmol/L Potassium (3.6-5.0) mmol/L Chloride 111.2 H (98-107) mmol/L Carbon Dioxide 12 L (22-30) mmol/L BUN (7-17) mg/dL Creatinine (0.7-1.2) mg/dL Glucose 210 H (65-100) mg/dL POC Glucose 197 H 176 H (70-105) Lactic Acid (0.7-2.0) mmol/L Calcium 8.1 L (8.4-10.2) mg/dL 12/12/19 12/12/19 12/13/19 Range/Units 23:32 23:48 01:16 WBC (4.5-11.0) K/mm3 Seg Neuts % (Manual) (40.0-70.0) % Lymphocytes % (Manual) (13.4-35.0) % Seg Neutrophils # Man (1.8-7.7) K/mm3 Lymphocytes # (Manual) (1.2-5.4) K/mm3 Monocytes # (Manual) (0.0-0.8) K/mm3 Sodium (137-145) mmol/L Potassium (3.6-5.0) mmol/L Chloride (98-107) mmol/L Carbon Dioxide (22-30) mmol/L BUN (7-17) mg/dL Creatinine (0.7-1.2) mg/dL Glucose (65-100) mg/dL POC Glucose 160 H 149 H 168 H (70-105) Lactic Acid (0.7-2.0) mmol/L Calcium (8.4-10.2) mg/dL 12/13/19 12/13/19 12/13/19 Range/Units 02:23 03:16 04:09 WBC (4.5-11.0) K/mm3 Seg Neuts % (Manual) (40.0-70.0) % Lymphocytes % (Manual) (13.4-35.0) % Seg Neutrophils # Man (1.8-7.7) K/mm3 Lymphocytes # (Manual) (1.2-5.4) K/mm3 Monocytes # (Manual) (0.0-0.8) K/mm3 Sodium (137-145) mmol/L Potassium (3.6-5.0) mmol/L Chloride (98-107) mmol/L Carbon Dioxide (22-30) mmol/L BUN (7-17) mg/dL Creatinine (0.7-1.2) mg/dL Glucose (65-100) mg/dL POC Glucose 184 H 161 H 165 H (70-105) Lactic Acid (0.7-2.0) mmol/L Calcium (8.4-10.2) mg/dL 12/13/19 12/13/19 12/13/19 Range/Units 05:20 05:26 05:26 WBC 20.9 H (4.5-11.0) K/mm3 Seg Neuts % (Manual) 91.0 H (40.0-70.0) % Lymphocytes % (Manual) 3.0 L (13.4-35.0) % Seg Neutrophils # Man 19.0 H (1.8-7.7) K/mm3 Lymphocytes # (Manual) 0.6 L (1.2-5.4) K/mm3 Monocytes # (Manual) 1.0 H (0.0-0.8) K/mm3 Sodium (137-145) mmol/L Potassium 3.1 L (3.6-5.0) mmol/L Chloride 109.3 H (98-107) mmol/L Carbon Dioxide 17 L (22-30) mmol/L BUN (7-17) mg/dL Creatinine (0.7-1.2) mg/dL Glucose 165 H (65-100) mg/dL POC Glucose 143 H (70-105) Lactic Acid (0.7-2.0) mmol/L Calcium 8.3 L (8.4-10.2) mg/dL 12/13/19 12/13/19 12/13/19 Range/Units 06:05 07:16 07:54 WBC (4.5-11.0) K/mm3 Seg Neuts % (Manual) (40.0-70.0) % Lymphocytes % (Manual) (13.4-35.0) % Seg Neutrophils # Man (1.8-7.7) K/mm3 Lymphocytes # (Manual) (1.2-5.4) K/mm3 Monocytes # (Manual) (0.0-0.8) K/mm3 Sodium (137-145) mmol/L Potassium (3.6-5.0) mmol/L Chloride (98-107) mmol/L Carbon Dioxide (22-30) mmol/L BUN (7-17) mg/dL Creatinine (0.7-1.2) mg/dL Glucose (65-100) mg/dL POC Glucose 140 H 140 H 154 H (70-105) Lactic Acid (0.7-2.0) mmol/L Calcium (8.4-10.2) mg/dL 12/13/19 12/13/19 12/13/19 Range/Units 08:25 09:50 10:39 WBC (4.5-11.0) K/mm3 Seg Neuts % (Manual) (40.0-70.0) % Lymphocytes % (Manual) (13.4-35.0) % Seg Neutrophils # Man (1.8-7.7) K/mm3 Lymphocytes # (Manual) (1.2-5.4) K/mm3 Monocytes # (Manual) (0.0-0.8) K/mm3 Sodium (137-145) mmol/L Potassium (3.6-5.0) mmol/L Chloride (98-107) mmol/L Carbon Dioxide (22-30) mmol/L BUN (7-17) mg/dL Creatinine (0.7-1.2) mg/dL Glucose (65-100) mg/dL POC Glucose 162 H 127 H 122 H (70-105) Lactic Acid (0.7-2.0) mmol/L Calcium (8.4-10.2) mg/dL 12/13/19 12/13/19 12/13/19 Range/Units 11:05 11:31 12:50 WBC (4.5-11.0) K/mm3 Seg Neuts % (Manual) (40.0-70.0) % Lymphocytes % (Manual) (13.4-35.0) % Seg Neutrophils # Man (1.8-7.7) K/mm3 Lymphocytes # (Manual) (1.2-5.4) K/mm3 Monocytes # (Manual) (0.0-0.8) K/mm3 Sodium (137-145) mmol/L Potassium 2.9 L* (3.6-5.0) mmol/L Chloride 109.1 H (98-107) mmol/L Carbon Dioxide 15 L (22-30) mmol/L BUN 6 L (7-17) mg/dL Creatinine 0.6 L (0.7-1.2) mg/dL Glucose 134 H (65-100) mg/dL POC Glucose 131 H 114 H (70-105) Lactic Acid (0.7-2.0) mmol/L Calcium 8.3 L (8.4-10.2) mg/dL 12/13/19 12/13/19 Range/Units 13:44 15:31 WBC (4.5-11.0) K/mm3 Seg Neuts % (Manual) (40.0-70.0) % Lymphocytes % (Manual) (13.4-35.0) % Seg Neutrophils # Man (1.8-7.7) K/mm3 Lymphocytes # (Manual) (1.2-5.4) K/mm3 Monocytes # (Manual) (0.0-0.8) K/mm3 Sodium (137-145) mmol/L Potassium (3.6-5.0) mmol/L Chloride (98-107) mmol/L Carbon Dioxide (22-30) mmol/L BUN (7-17) mg/dL Creatinine (0.7-1.2) mg/dL Glucose (65-100) mg/dL POC Glucose 112 H 118 H (70-105) Lactic Acid (0.7-2.0) mmol/L Calcium (8.4-10.2) mg/dL
[2019-12-13 16:42] LABS: BUN/Creatinine Ratio 12; Blood Urea Nitrogen 6 mg/dL (7-17); Hemolysis Index 49
[2019-12-14 01:15] LABS: BUN/Creatinine Ratio 8; Blood Urea Nitrogen 4 mg/dL (7-17); Calcium 8.6 mg/dL (8.4-10.2); Hemolysis Index 4
[2019-12-14 06:46] LABS: BUN/Creatinine Ratio 6; Blood Urea Nitrogen 3 mg/dL (7-17); Calcium 8.6 mg/dL (8.4-10.2); Hemolysis Index 2
[2019-12-14] MEDS: D5W/0.45% NACL/KCL 20 MEQ 20 MEQ/1,000 ML BAG IV SCH (08:09)
--- NOTE | 2019-12-14 08:54 | Progress Note ---
Assessment and Plan (1) Sepsis Current Visit: Yes Status: Acute Plan to address problem: Sepsis protocol:Continue with ICU admission. IV antibiotic therapy( follow c ultures, RACHID and sensitivities- deescalate based on results), CBC, CMP, chest x- ray, urinalysis, serial lactic acid level, monitor urine output every shift, maintain mean arterial blood pressure greater than or equal to 65, IV fluid resuscitation therapy, repeat CBC and BMP in a.m. The high probability of a clinically significant, sudden or life threatening deterioration of the [endocrine, cardiac, renal, pulmonary] system(s) required my full and direct attention, intervention and personal management. The aggregate critical care time was [30] minutes. This time is in addition to time spent performing reported procedures but includes the following: [x] Data Review and interpretation [x] Patient assessment and monitoring of vital signs [x] Documentation [x] Medication orders and management (2) DKA (diabetic ketoacidosis) Current Visit: No Status: Acute Qualifiers: Diabetes mellitus type: type 1 Plan to address problem: DKA protocol: Admit to ICU, IV fluid resuscitation therapy, insulin drip, serial BMP, monitor anion gap, monitor serum potassium, Replace all electrolytes per protocol Once her gap closes switch to weight based/bolus insulin therapy and initiate oral steady carb diet (3) Noncompliance with medication regimen Current Visit: Yes Status: Acute Plan to address problem: Patient counseled regarding medication noncompliance. Patient informed of increased risk of worsening symptoms, end organ damage, and even . Patient knowledges understanding instructions. Change lantus to 70/30 Case management/social services technician to assist with medication management (4) Acute kidney injury Current Visit: Yes Status: Acute Plan to address problem: IV fluid resuscitation therapy, monitor urine output every shift, BMP, repeat BMP in a.m. to monitor serum creatinine. (5) Metabolic acidosis Current Visit: Yes Status: Acute Plan to address problem: IV fluid resuscitation therapy, treat DKA, treat sepsis, serial lactic acid level. (6) DVT prophylaxis Current Visit: No Status: Acute Plan to address problem: SCD to bilateral lower extremities while in bed, prophylactic heparin. Subjective Date of service: 12/14/19 Objective Vital Signs - 12hr 12/13/19 12/13/19 12/13/19 21:00 22:00 23:00 Temperature Pulse Rate 65 60 67 Pulse Rate [ From Monitor] Pulse Rate [ Right Dorsalis Pedis] Pulse Rate [ Right Radial] Respiratory 14 17 20 Rate Blood Pressure 137/69 117/53 128/62 O2 Sat by Pulse 100 100 Oximetry 12/13/19 12/13/19 12/14/19 23:30 23:36 00:00 Temperature 100.6 F H Pulse Rate 66 59 L Pulse Rate [ From Monitor] Pulse Rate [ Right Dorsalis Pedis] Pulse Rate [ Right Radial] Respiratory 19 Rate Blood Pressure 128/62 O2 Sat by Pulse Oximetry 12/14/19 12/14/19 12/14/19 00:14 01:00 02:00 Temperature Pulse Rate 61 62 62 Pulse Rate [ From Monitor] Pulse Rate [ Right Dorsalis Pedis] Pulse Rate [ Right Radial] Respiratory 19 19 16 Rate Blood Pressure 143/62 123/61 127/62 O2 Sat by Pulse 99 100 99 Oximetry 12/14/19 12/14/19 12/14/19 03:00 03:26 03:30 Temperature Pulse Rate 64 57 L Pulse Rate [ 57 L From Monitor] Pulse Rate [ 57 L Right Dorsalis Pedis] Pulse Rate [ 57 L Right Radial] Respiratory 15 19 Rate Blood Pressure 127/62 O2 Sat by Pulse 100 100 Oximetry 12/14/19 12/14/19 12/14/19 03:35 04:00 05:00 Temperature 98.9 F Pulse Rate 72 65 Pulse Rate [ From Monitor] Pulse Rate [ Right Dorsalis Pedis] Pulse Rate [ Right Radial] Respiratory 18 22 Rate Blood Pressure 141/68 146/71 O2 Sat by Pulse 99 Oximetry 12/14/19 12/14/19 06:00 07:00 Temperature Pulse Rate 65 62 Pulse Rate [ From Monitor] Pulse Rate [ Right Dorsalis Pedis] Pulse Rate [ Right Radial] Respiratory 21 16 Rate Blood Pressure 144/69 150/66 O2 Sat by Pulse 96 98 Oximetry CBC and BMP: 12/13/19 05:26 12/14/19 05:42 Abnormal lab findings: Abnormal Labs 12/12/19 12/12/19 12/12/19 10:50 11:09 11:09 WBC 28.8 H RBC 5.55 H Hgb 15.6 H Hct 49.8 H Seg Neuts % (Manual) Lymphocytes % (Manual) Seg Neutrophils # Man Lymphocytes # (Manual) Monocytes # (Manual) VBG pH Sodium Potassium Chloride 91.2 L Carbon Dioxide 5 L* BUN 26 H Creatinine 1.6 H Glucose 704 H* POC Glucose 492 H Lactic Acid Calcium Phosphorus Alkaline Phosphatase 157 H Total Creatine Kinase 159 H CK-MB (CK-2) 5.7 H Total Protein 8.3 H 12/12/19 12/12/19 12/12/19 11:09 11:26 12:01 WBC RBC Hgb Hct Seg Neuts % (Manual) Lymphocytes % (Manual) Seg Neutrophils # Man Lymphocytes # (Manual) Monocytes # (Manual) VBG pH 7.126 L* Sodium Potassium Chloride Carbon Dioxide BUN Creatinine Glucose POC Glucose 500 H Lactic Acid Calcium Phosphorus 6.90 H Alkaline Phosphatase Total Creatine Kinase CK-MB (CK-2) Total Protein 12/12/19 12/12/19 12/12/19 12:01 12:04 14:24 WBC RBC Hgb Hct Seg Neuts % (Manual) Lymphocytes % (Manual) Seg Neutrophils # Man Lymphocytes # (Manual) Monocytes # (Manual) VBG pH Sodium Potassium Chloride 95.6 L Carbon Dioxide 5 L* BUN 26 H Creatinine 1.4 H Glucose 653 H* POC Glucose 443 H Lactic Acid 3.00 H* Calcium Phosphorus Alkaline Phosphatase Total Creatine Kinase CK-MB (CK-2) Total Protein 12/12/19 12/12/19 12/12/19 14:38 14:38 14:52 WBC RBC Hgb Hct Seg Neuts % (Manual) Lymphocytes % (Manual) Seg Neutrophils # Man Lymphocytes # (Manual) Monocytes # (Manual) VBG pH Sodium Potassium Chloride Carbon Dioxide 6 L* BUN 23 H Creatinine Glucose 427 H POC Glucose 371 H Lactic Acid 2.10 H* Calcium 8.3 L Phosphorus Alkaline Phosphatase Total Creatine Kinase CK-MB (CK-2) Total Protein 12/12/19 12/12/19 12/12/19 16:09 16:28 16:28 WBC RBC Hgb Hct Seg Neuts % (Manual) Lymphocytes % (Manual) Seg Neutrophils # Man Lymphocytes # (Manual) Monocytes # (Manual) VBG pH Sodium 146 H Potassium Chloride 107.7 H Carbon Dioxide 7 L* BUN 20 H Creatinine Glucose 279 H POC Glucose 268 H Lactic Acid 2.10 H* Calcium Phosphorus Alkaline Phosphatase Total Creatine Kinase CK-MB (CK-2) Total Protein 12/12/19 12/12/19 12/12/19 16:56 17:51 18:40 WBC RBC Hgb Hct Seg Neuts % (Manual) Lymphocytes % (Manual) Seg Neutrophils # Man Lymphocytes # (Manual) Monocytes # (Manual) VBG pH Sodium Potassium Chloride Carbon Dioxide BUN Creatinine Glucose POC Glucose 214 H 194 H 176 H Lactic Acid Calcium Phosphorus Alkaline Phosphatase Total Creatine Kinase CK-MB (CK-2) Total Protein 12/12/19 12/12/19 12/12/19 19:38 20:06 20:35 WBC RBC Hgb Hct Seg Neuts % (Manual) Lymphocytes % (Manual) Seg Neutrophils # Man Lymphocytes # (Manual) Monocytes # (Manual) VBG pH Sodium Potassium Chloride 111.4 H Carbon Dioxide 10 L BUN Creatinine Glucose 212 H POC Glucose 175 H 194 H Lactic Acid Calcium 8.2 L Phosphorus Alkaline Phosphatase Total Creatine Kinase CK-MB (CK-2) Total Protein 12/12/19 12/12/19 12/12/19 21:09 21:31 22:16 WBC RBC Hgb Hct Seg Neuts % (Manual) Lymphocytes % (Manual) Seg Neutrophils # Man Lymphocytes # (Manual) Monocytes # (Manual) VBG pH Sodium Potassium Chloride 111.2 H Carbon Dioxide 12 L BUN Creatinine Glucose 210 H POC Glucose 197 H 176 H Lactic Acid Calcium 8.1 L Phosphorus Alkaline Phosphatase Total Creatine Kinase CK-MB (CK-2) Total Protein 12/12/19 12/12/19 12/13/19 23:32 23:48 01:16 WBC RBC Hgb Hct Seg Neuts % (Manual) Lymphocytes % (Manual) Seg Neutrophils # Man Lymphocytes # (Manual) Monocytes # (Manual) VBG pH Sodium Potassium Chloride Carbon Dioxide BUN Creatinine Glucose POC Glucose 160 H 149 H 168 H Lactic Acid Calcium Phosphorus Alkaline Phosphatase Total Creatine Kinase CK-MB (CK-2) Total Protein 12/13/19 12/13/19 12/13/19 02:23 03:16 04:09 WBC RBC Hgb Hct Seg Neuts % (Manual) Lymphocytes % (Manual) Seg Neutrophils # Man Lymphocytes # (Manual) Monocytes # (Manual) VBG pH Sodium Potassium Chloride Carbon Dioxide BUN Creatinine Glucose POC Glucose 184 H 161 H 165 H Lactic Acid Calcium Phosphorus Alkaline Phosphatase Total Creatine Kinase CK-MB (CK-2) Total Protein 12/13/19 12/13/19 12/13/19 05:20 05:26 05:26 WBC 20.9 H RBC Hgb Hct Seg Neuts % (Manual) 91.0 H Lymphocytes % (Manual) 3.0 L Seg Neutrophils # Man 19.0 H Lymphocytes # (Manual) 0.6 L Monocytes # (Manual) 1.0 H VBG pH Sodium Potassium 3.1 L Chloride 109.3 H Carbon Dioxide 17 L BUN Creatinine Glucose 165 H POC Glucose 143 H Lactic Acid Calcium 8.3 L Phosphorus Alkaline Phosphatase Total Creatine Kinase CK-MB (CK-2) Total Protein 12/13/19 12/13/19 12/13/19 06:05 07:16 07:54 WBC RBC Hgb Hct Seg Neuts % (Manual) Lymphocytes % (Manual) Seg Neutrophils # Man Lymphocytes # (Manual) Monocytes # (Manual) VBG pH Sodium Potassium Chloride Carbon Dioxide BUN Creatinine Glucose POC Glucose 140 H 140 H 154 H Lactic Acid Calcium Phosphorus Alkaline Phosphatase Total Creatine Kinase CK-MB (CK-2) Total Protein 12/13/19 12/13/19 12/13/19 08:25 09:50 10:39 WBC RBC Hgb Hct Seg Neuts % (Manual) Lymphocytes % (Manual) Seg Neutrophils # Man Lymphocytes # (Manual) Monocytes # (Manual) VBG pH Sodium Potassium Chloride Carbon Dioxide BUN Creatinine Glucose POC Glucose 162 H 127 H 122 H Lactic Acid Calcium Phosphorus Alkaline Phosphatase Total Creatine Kinase CK-MB (CK-2) Total Protein 12/13/19 12/13/19 12/13/19 11:05 11:31 12:50 WBC RBC Hgb Hct Seg Neuts % (Manual) Lymphocytes % (Manual) Seg Neutrophils # Man Lymphocytes # (Manual) Monocytes # (Manual) VBG pH Sodium Potassium 2.9 L* Chloride 109.1 H Carbon Dioxide 15 L BUN 6 L Creatinine 0.6 L Glucose 134 H POC Glucose 131 H 114 H Lactic Acid Calcium 8.3 L Phosphorus Alkaline Phosphatase Total Creatine Kinase CK-MB (CK-2) Total Protein 12/13/19 12/13/19 12/13/19 13:44 15:31 16:03 WBC RBC Hgb Hct Seg Neuts % (Manual) Lymphocytes % (Manual) Seg Neutrophils # Man Lymphocytes # (Manual) Monocytes # (Manual) VBG pH Sodium Potassium 3.3 L Chloride 108.4 H Carbon Dioxide 14 L BUN 6 L Creatinine 0.5 L Glucose 150 H POC Glucose 112 H 118 H Lactic Acid Calcium 8.0 L Phosphorus Alkaline Phosphatase Total Creatine Kinase CK-MB (CK-2) Total Protein 12/13/19 12/13/19 12/13/19 16:42 17:34 19:38 WBC RBC Hgb Hct Seg Neuts % (Manual) Lymphocytes % (Manual) Seg Neutrophils # Man Lymphocytes # (Manual) Monocytes # (Manual) VBG pH Sodium Potassium Chloride Carbon Dioxide BUN Creatinine Glucose POC Glucose 187 H 134 H 108 H Lactic Acid Calcium Phosphorus Alkaline Phosphatase Total Creatine Kinase CK-MB (CK-2) Total Protein 12/13/19 12/13/19 12/13/19 20:14 21:11 23:26 WBC RBC Hgb Hct Seg Neuts % (Manual) Lymphocytes % (Manual) Seg Neutrophils # Man Lymphocytes # (Manual) Monocytes # (Manual) VBG pH Sodium Potassium Chloride Carbon Dioxide BUN Creatinine Glucose POC Glucose 122 H 151 H 132 H Lactic Acid Calcium Phosphorus Alkaline Phosphatase Total Creatine Kinase CK-MB (CK-2) Total Protein 12/14/19 12/14/19 12/14/19 00:04 00:40 01:20 WBC RBC Hgb Hct Seg Neuts % (Manual) Lymphocytes % (Manual) Seg Neutrophils # Man Lymphocytes # (Manual) Monocytes # (Manual) VBG pH Sodium Potassium 3.1 L Chloride Carbon Dioxide 20 L BUN 4 L Creatinine 0.5 L Glucose 170 H POC Glucose 145 H 138 H Lactic Acid Calcium Phosphorus Alkaline Phosphatase Total Creatine Kinase CK-MB (CK-2) Total Protein 12/14/19 12/14/19 12/14/19 02:16 03:13 04:20 WBC RBC Hgb Hct Seg Neuts % (Manual) Lymphocytes % (Manual) Seg Neutrophils # Man Lymphocytes # (Manual) Monocytes # (Manual) VBG pH Sodium Potassium Chloride Carbon Dioxide BUN Creatinine Glucose POC Glucose 146 H 131 H 114 H Lactic Acid Calcium Phosphorus Alkaline Phosphatase Total Creatine Kinase CK-MB (CK-2) Total Protein 12/14/19 12/14/19 12/14/19 05:14 05:42 05:46 WBC RBC Hgb Hct Seg Neuts % (Manual) Lymphocytes % (Manual) Seg Neutrophils # Man Lymphocytes # (Manual) Monocytes # (Manual) VBG pH Sodium Potassium 2.8 L* Chloride Carbon Dioxide 21 L BUN 3 L Creatinine 0.5 L Glucose 141 H POC Glucose 107 H 121 H Lactic Acid Calcium Phosphorus Alkaline Phosphatase Total Creatine Kinase CK-MB (CK-2) Total Protein 12/14/19 07:54 WBC RBC Hgb Hct Seg Neuts % (Manual) Lymphocytes % (Manual) Seg Neutrophils # Man Lymphocytes # (Manual) Monocytes # (Manual) VBG pH Sodium Potassium Chloride Carbon Dioxide BUN Creatinine Glucose POC Glucose 165 H Lactic Acid Calcium Phosphorus Alkaline Phosphatase Total Creatine Kinase CK-MB (CK-2) Total Protein
[2019-12-14] MEDS: HEPARIN 5,000 UNIT/1 ML VIAL SUB-Q SCH ×2 (09:54→22:04)
[2019-12-14] MEDS: FAMOTIDINE 20 MG/2 ML INJ IV SCH (09:54)
[2019-12-14] MEDS: POTASSIUM CHLORIDE ER 20 MEQ TAB PO SCH ×3 (09:55→17:49)
[2019-12-14] MEDS: INSULIN NPH, HUMAN 100 UNIT/1 ML SUB-Q SCH ×2 (12:11→17:00)
[2019-12-14] MEDS: INSULIN LISPRO 100 UNIT/ML SUB-Q SCH ×3 (12:58→22:00)
[2019-12-14] MEDS: cefTRIAXone/NS 1 GM/50 ML 1 GM/50 ML BAG IV SCH (13:13)
--- NOTE | 2019-12-14 13:58 | Progress Note ---
Assessment and Plan / SIRS - with organ dysfunction OSMAN due to DKA blood cx negative, monitor off abx for now / DKA (diabetic ketoacidoses) s/p DKA protocol: monitored at ICU with IV fluid resuscitation therapy, insulin drip, serial BMP, serial anion gap and serum potassium, off insulin drip now, cont SSI, long acting insulin and consistent carb diet / Noncompliance with medication regimen Patient counseled regarding medication noncompliance. Patient informed of increased risk of worsening symptoms, end organ damage, and even . Patient knowledges understanding instructions. /hypokalemia, cont to replete, monitor BMP, normal mg / Acute kidney injury, due to vasomotor nephropathy - resolved Cr was 1.6 on admission IV fluid resuscitation therapy, monitor urine output every shift, repeat BMP in a.m. to monitor serum creatinine. / Metabolic acidosis IV fluid resuscitation therapy, treat DKA, / DVT prophylaxis SCD to bilateral lower extremities while in bed, prophylactic heparin. transfer out of ICU to [facility] possible d/c tomorrow if BG stable Subjective Date of service: 12/14/19 Interval history: Patient seen and examined resolved anion gap, off insulin drip, counselled pt for compliance transfer out off ICU today Objective - Constitutional Vitals: Vital Signs - 12hr 12/14/19 12/14/19 12/14/19 02:00 03:00 03:26 Temperature Pulse Rate 62 64 Pulse Rate [ 57 L From Monitor] Pulse Rate [ 57 L Right Dorsalis Pedis] Pulse Rate [ 57 L Right Radial] Respiratory 16 15 19 Rate Blood Pressure 127/62 127/62 O2 Sat by Pulse 99 100 100 Oximetry 12/14/19 12/14/19 12/14/19 03:30 03:35 04:00 Temperature 98.9 F Pulse Rate 57 L 72 Pulse Rate [ From Monitor] Pulse Rate [ Right Dorsalis Pedis] Pulse Rate [ Right Radial] Respiratory 18 Rate Blood Pressure 141/68 O2 Sat by Pulse 99 Oximetry 12/14/19 12/14/19 12/14/19 05:00 06:00 07:00 Temperature Pulse Rate 65 65 62 Pulse Rate [ From Monitor] Pulse Rate [ Right Dorsalis Pedis] Pulse Rate [ Right Radial] Respiratory 22 21 16 Rate Blood Pressure 146/71 144/69 150/66 O2 Sat by Pulse 96 98 Oximetry 12/14/19 12/14/19 12/14/19 08:00 09:00 10:00 Temperature 99.3 F Pulse Rate 55 L 56 L 55 L Pulse Rate [ 55 L From Monitor] Pulse Rate [ 55 L Right Dorsalis Pedis] Pulse Rate [ 55 L Right Radial] Respiratory 16 20 19 Rate Blood Pressure 147/70 147/69 147/69 O2 Sat by Pulse 99 97 99 Oximetry 12/14/19 12/14/19 11:00 12:00 Temperature 98.9 F Pulse Rate 57 L 65 Pulse Rate [ From Monitor] Pulse Rate [ Right Dorsalis Pedis] Pulse Rate [ Right Radial] Respiratory 19 13 Rate Blood Pressure 140/63 139/69 O2 Sat by Pulse 97 99 Oximetry General appearance: Present: no acute distress, well-nourished - EENT Eyes: PERRL, EOM intact ENT: hearing intact, clear oral mucosa Ears: bilateral: normal - Neck Neck: supple, normal ROM - Respiratory Respiratory effort: normal Respiratory: bilateral: CTA - Cardiovascular Rhythm: regular Heart Sounds: Present: S1 & S2. Absent: gallop, rub Extremities: pulses intact, No edema, normal color, Full ROM - Gastrointestinal General gastrointestinal: Present: soft, non-tender, non-distended, normal bowel sounds - Integumentary Integumentary: clear, warm, dry - Musculoskeletal Musculoskeletal: 1, strength equal bilaterally - Neurologic Neurologic: moves all extremities - Psychiatric Psychiatric: memory intact, appropriate mood/affect, intact judgment & insight - Labs CBC & Chem 7: 12/15/19 06:52 12/15/19 06:52 Labs: Abnormal lab results 12/13/19 12/13/19 12/13/19 Range/Units 15:31 16:03 16:42 Potassium 3.3 L (3.6-5.0) mmol/L Chloride 108.4 H (98-107) mmol/L Carbon Dioxide 14 L (22-30) mmol/L BUN 6 L (7-17) mg/dL Creatinine 0.5 L (0.7-1.2) mg/dL Glucose 150 H (65-100) mg/dL POC Glucose 118 H 187 H (70-105) Calcium 8.0 L (8.4-10.2) mg/dL 12/13/19 12/13/19 12/13/19 Range/Units 17:34 19:38 20:14 Potassium (3.6-5.0) mmol/L Chloride (98-107) mmol/L Carbon Dioxide (22-30) mmol/L BUN (7-17) mg/dL Creatinine (0.7-1.2) mg/dL Glucose (65-100) mg/dL POC Glucose 134 H 108 H 122 H (70-105) Calcium (8.4-10.2) mg/dL 12/13/19 12/13/19 12/14/19 Range/Units 21:11 23:26 00:04 Potassium (3.6-5.0) mmol/L Chloride (98-107) mmol/L Carbon Dioxide (22-30) mmol/L BUN (7-17) mg/dL Creatinine (0.7-1.2) mg/dL Glucose (65-100) mg/dL POC Glucose 151 H 132 H 145 H (70-105) Calcium (8.4-10.2) mg/dL 12/14/19 12/14/19 12/14/19 Range/Units 00:40 01:20 02:16 Potassium 3.1 L (3.6-5.0) mmol/L Chloride (98-107) mmol/L Carbon Dioxide 20 L (22-30) mmol/L BUN 4 L (7-17) mg/dL Creatinine 0.5 L (0.7-1.2) mg/dL Glucose 170 H (65-100) mg/dL POC Glucose 138 H 146 H (70-105) Calcium (8.4-10.2) mg/dL 12/14/19 12/14/19 12/14/19 Range/Units 03:13 04:20 05:14 Potassium (3.6-5.0) mmol/L Chloride (98-107) mmol/L Carbon Dioxide (22-30) mmol/L BUN (7-17) mg/dL Creatinine (0.7-1.2) mg/dL Glucose (65-100) mg/dL POC Glucose 131 H 114 H 107 H (70-105) Calcium (8.4-10.2) mg/dL 12/14/19 12/14/19 12/14/19 Range/Units 05:42 05:46 07:54 Potassium 2.8 L* (3.6-5.0) mmol/L Chloride (98-107) mmol/L Carbon Dioxide 21 L (22-30) mmol/L BUN 3 L (7-17) mg/dL Creatinine 0.5 L (0.7-1.2) mg/dL Glucose 141 H (65-100) mg/dL POC Glucose 121 H 165 H (70-105) Calcium (8.4-10.2) mg/dL 12/14/19 12/14/19 Range/Units 09:03 12:01 Potassium (3.6-5.0) mmol/L Chloride (98-107) mmol/L Carbon Dioxide (22-30) mmol/L BUN (7-17) mg/dL Creatinine (0.7-1.2) mg/dL Glucose (65-100) mg/dL POC Glucose 148 H 157 H (70-105) Calcium (8.4-10.2) mg/dL
[2019-12-14] MEDS: FAMOTIDINE 20 MG TAB PO SCH (22:04)
[2019-12-15 07:30] LABS: Basophils % (Auto) 0.4 % (0.0-1.8); Eosinophils % (Auto) 0.1 % (0.0-4.3); Hematocrit 43.2 % (30.3-42.9); Hemoglobin 14.5 gm/dl (10.1-14.3); Lymphocytes # (Auto) 1.3 K/mm3 (1.2-5.4); Lymphocytes % (Auto) 20.4 % (13.4-35.0); Mean Corpuscular HGB Conc 34 % (30-34); Mean Corpuscular Volume 83 fl (79-97); Monocytes # (Auto) 0.7 K/mm3 (0.0-0.8); Monocytes % (Auto) 10.3 % (0.0-7.3); Platelet Count 227 K/mm3 (140-440); Red Blood Count 5.19 M/mm3 (3.65-5.03); Red Cell Distribution Width 13.7 % (13.2-15.2)
[2019-12-15 07:45] LABS: BUN/Creatinine Ratio 14; Blood Urea Nitrogen 7 mg/dL (7-17); Calcium 8.9 mg/dL (8.4-10.2); Hemolysis Index 7
--- NOTE | 2019-12-15 09:33 | Progress Note ---
Assessment and Plan Patient alert and awake. She in no acute respiratory distress. She is on Room air with an O2 saturation of 98%. Patient denies Chest pain, shortness of breath, and cough. Patient denies history of smoking. Also denies any history of pulmonary disease. She is afebrile without leukocytosis. Patient admitted for DKA. Patient's blood sugar is 265 and Anion gap is 24. Management as per primary care. Chest X ray 12/12/19 showed No acute abnormality or significant change. Chest CTA 12/12/[address] evidence for PE. No acute findings. - Patient Problems (1) Shortness of breath Current Visit: Yes Status: Acute Plan to address problem: Improved. No complaint of SOB (2) Acute kidney injury Current Visit: Yes Status: Acute Plan to address problem: Management per Nephrology (3) Metabolic acidosis Current Visit: Yes Status: Acute Plan to address problem: Anion gap is 24; improved since admission Recommend IV Fluids and tight blood glucose control management as per primary team Subjective Date of service: 12/15/19 Interval history: Patient alert and awake. She in no acute respiratory distress. She is on Room air with an O2 saturation of 98%. Patient denies Chest pain, shortness of breath, and cough. Patient denies history of smoking. Also denies any history of pulmonary disease. She is afebrile without leukocytosis. Patient admitted for DKA. Patient's blood sugar is 265 and Anion gap is 24. Management as per primary care. Chest X ray 12/12/19 showed No acute abnormality or significant change. Chest CTA 12/12/[address] evidence for PE. No acute findings. Objective Vital Signs - 12hr 12/14/19 12/15/19 12/15/19 21:34 00:00 03:00 Temperature 99.2 F Pulse Rate Pulse Rate [ 66 From Monitor] Pulse Rate [ 66 Right Dorsalis Pedis] Pulse Rate [ 70 Right Radial] Respiratory 20 18 18 Rate Blood Pressure 138/74 O2 Sat by Pulse 96 96 Oximetry 12/15/19 04:13 Temperature 98.3 F Pulse Rate 69 Pulse Rate [ From Monitor] Pulse Rate [ Right Dorsalis Pedis] Pulse Rate [ Right Radial] Respiratory 20 Rate Blood Pressure 141/78 O2 Sat by Pulse 98 Oximetry Constitutional: no acute distress Eyes: non-icteric ENT: oropharynx moist Neck: supple, no lymphadenopathy Effort: normal Ascultation: Bilateral: clear Cardiovascular: regular rate and rhythm Gastrointestinal: normoactive bowel sounds Integumentary: normal Extremities: no cyanosis Neurologic: normal mental status, non-focal exam Psychiatric: mood appropriate, affect normal CBC and BMP: 12/15/19 06:52 12/15/19 06:52 Abnormal lab findings: Abnormal Labs 12/12/19 12/12/19 12/12/19 10:50 11:09 11:09 WBC 28.8 H RBC 5.55 H Hgb 15.6 H Hct 49.8 H Dougherty % (Auto) Seg Neuts % (Manual) Lymphocytes % (Manual) Seg Neutrophils # Man Lymphocytes # (Manual) Monocytes # (Manual) VBG pH Sodium Potassium Chloride 91.2 L Carbon Dioxide 5 L* BUN 26 H Creatinine 1.6 H Glucose 704 H* POC Glucose 492 H Lactic Acid Calcium Phosphorus Alkaline Phosphatase 157 H Total Creatine Kinase 159 H CK-MB (CK-2) 5.7 H Total Protein 8.3 H 12/12/19 12/12/19 12/12/19 11:09 11:26 12:01 WBC RBC Hgb Hct Dougherty % (Auto) Seg Neuts % (Manual) Lymphocytes % (Manual) Seg Neutrophils # Man Lymphocytes # (Manual) Monocytes # (Manual) VBG pH 7.126 L* Sodium Potassium Chloride Carbon Dioxide BUN Creatinine Glucose POC Glucose 500 H Lactic Acid Calcium Phosphorus 6.90 H Alkaline Phosphatase Total Creatine Kinase CK-MB (CK-2) Total Protein 12/12/19 12/12/19 12/12/19 12:01 12:04 14:24 WBC RBC Hgb Hct Dougherty % (Auto) Seg Neuts % (Manual) Lymphocytes % (Manual) Seg Neutrophils # Man Lymphocytes # (Manual) Monocytes # (Manual) VBG pH Sodium Potassium Chloride 95.6 L Carbon Dioxide 5 L* BUN 26 H Creatinine 1.4 H Glucose 653 H* POC Glucose 443 H Lactic Acid 3.00 H* Calcium Phosphorus Alkaline Phosphatase Total Creatine Kinase CK-MB (CK-2) Total Protein 12/12/19 12/12/19 12/12/19 14:38 14:38 14:52 WBC RBC Hgb Hct Dougherty % (Auto) Seg Neuts % (Manual) Lymphocytes % (Manual) Seg Neutrophils # Man Lymphocytes # (Manual) Monocytes # (Manual) VBG pH Sodium Potassium Chloride Carbon Dioxide 6 L* BUN 23 H Creatinine Glucose 427 H POC Glucose 371 H Lactic Acid 2.10 H* Calcium 8.3 L Phosphorus Alkaline Phosphatase Total Creatine Kinase CK-MB (CK-2) Total Protein 12/12/19 12/12/19 12/12/19 16:09 16:28 16:28 WBC RBC Hgb Hct Dougherty % (Auto) Seg Neuts % (Manual) Lymphocytes % (Manual) Seg Neutrophils # Man Lymphocytes # (Manual) Monocytes # (Manual) VBG pH Sodium 146 H Potassium Chloride 107.7 H Carbon Dioxide 7 L* BUN 20 H Creatinine Glucose 279 H POC Glucose 268 H Lactic Acid 2.10 H* Calcium Phosphorus Alkaline Phosphatase Total Creatine Kinase CK-MB (CK-2) Total Protein 12/12/19 12/12/19 12/12/19 16:56 17:51 18:40 WBC RBC Hgb Hct Dougherty % (Auto) Seg Neuts % (Manual) Lymphocytes % (Manual) Seg Neutrophils # Man Lymphocytes # (Manual) Monocytes # (Manual) VBG pH Sodium Potassium Chloride Carbon Dioxide BUN Creatinine Glucose POC Glucose 214 H 194 H 176 H Lactic Acid Calcium Phosphorus Alkaline Phosphatase Total Creatine Kinase CK-MB (CK-2) Total Protein 12/12/19 12/12/19 12/12/19 19:38 20:06 20:35 WBC RBC Hgb Hct Dougherty % (Auto) Seg Neuts % (Manual) Lymphocytes % (Manual) Seg Neutrophils # Man Lymphocytes # (Manual) Monocytes # (Manual) VBG pH Sodium Potassium Chloride 111.4 H Carbon Dioxide 10 L BUN Creatinine Glucose 212 H POC Glucose 175 H 194 H Lactic Acid Calcium 8.2 L Phosphorus Alkaline Phosphatase Total Creatine Kinase CK-MB (CK-2) Total Protein 12/12/19 12/12/19 12/12/19 21:09 21:31 22:16 WBC RBC Hgb Hct Dougherty % (Auto) Seg Neuts % (Manual) Lymphocytes % (Manual) Seg Neutrophils # Man Lymphocytes # (Manual) Monocytes # (Manual) VBG pH Sodium Potassium Chloride 111.2 H Carbon Dioxide 12 L BUN Creatinine Glucose 210 H POC Glucose 197 H 176 H Lactic Acid Calcium 8.1 L Phosphorus Alkaline Phosphatase Total Creatine Kinase CK-MB (CK-2) Total Protein 12/12/19 12/12/19 12/13/19 23:32 23:48 01:16 WBC RBC Hgb Hct Dougherty % (Auto) Seg Neuts % (Manual) Lymphocytes % (Manual) Seg Neutrophils # Man Lymphocytes # (Manual) Monocytes # (Manual) VBG pH Sodium Potassium Chloride Carbon Dioxide BUN Creatinine Glucose POC Glucose 160 H 149 H 168 H Lactic Acid Calcium Phosphorus Alkaline Phosphatase Total Creatine Kinase CK-MB (CK-2) Total Protein 12/13/19 12/13/19 12/13/19 02:23 03:16 04:09 WBC RBC Hgb Hct Dougherty % (Auto) Seg Neuts % (Manual) Lymphocytes % (Manual) Seg Neutrophils # Man Lymphocytes # (Manual) Monocytes # (Manual) VBG pH Sodium Potassium Chloride Carbon Dioxide BUN Creatinine Glucose POC Glucose 184 H 161 H 165 H Lactic Acid Calcium Phosphorus Alkaline Phosphatase Total Creatine Kinase CK-MB (CK-2) Total Protein 12/13/19 12/13/19 12/13/19 05:20 05:26 05:26 WBC 20.9 H RBC Hgb Hct Dougherty % (Auto) Seg Neuts % (Manual) 91.0 H Lymphocytes % (Manual) 3.0 L Seg Neutrophils # Man 19.0 H Lymphocytes # (Manual) 0.6 L Monocytes # (Manual) 1.0 H VBG pH Sodium Potassium 3.1 L Chloride 109.3 H Carbon Dioxide 17 L BUN Creatinine Glucose 165 H POC Glucose 143 H Lactic Acid Calcium 8.3 L Phosphorus Alkaline Phosphatase Total Creatine Kinase CK-MB (CK-2) Total Protein 12/13/19 12/13/19 12/13/19 06:05 07:16 07:54 WBC RBC Hgb Hct Dougherty % (Auto) Seg Neuts % (Manual) Lymphocytes % (Manual) Seg Neutrophils # Man Lymphocytes # (Manual) Monocytes # (Manual) VBG pH Sodium Potassium Chloride Carbon Dioxide BUN Creatinine Glucose POC Glucose 140 H 140 H 154 H Lactic Acid Calcium Phosphorus Alkaline Phosphatase Total Creatine Kinase CK-MB (CK-2) Total Protein 12/13/19 12/13/19 12/13/19 08:25 09:50 10:39 WBC RBC Hgb Hct Dougherty % (Auto) Seg Neuts % (Manual) Lymphocytes % (Manual) Seg Neutrophils # Man Lymphocytes # (Manual) Monocytes # (Manual) VBG pH Sodium Potassium Chloride Carbon Dioxide BUN Creatinine Glucose POC Glucose 162 H 127 H 122 H Lactic Acid Calcium Phosphorus Alkaline Phosphatase Total Creatine Kinase CK-MB (CK-2) Total Protein 12/13/19 12/13/19 12/13/19 11:05 11:31 12:50 WBC RBC Hgb Hct Dougherty % (Auto) Seg Neuts % (Manual) Lymphocytes % (Manual) Seg Neutrophils # Man Lymphocytes # (Manual) Monocytes # (Manual) VBG pH Sodium Potassium 2.9 L* Chloride 109.1 H Carbon Dioxide 15 L BUN 6 L Creatinine 0.6 L Glucose 134 H POC Glucose 131 H 114 H Lactic Acid Calcium 8.3 L Phosphorus Alkaline Phosphatase Total Creatine Kinase CK-MB (CK-2) Total Protein 12/13/19 12/13/19 12/13/19 13:44 15:31 16:03 WBC RBC Hgb Hct Dougherty % (Auto) Seg Neuts % (Manual) Lymphocytes % (Manual) Seg Neutrophils # Man Lymphocytes # (Manual) Monocytes # (Manual) VBG pH Sodium Potassium 3.3 L Chloride 108.4 H Carbon Dioxide 14 L BUN 6 L Creatinine 0.5 L Glucose 150 H POC Glucose 112 H 118 H Lactic Acid Calcium 8.0 L Phosphorus Alkaline Phosphatase Total Creatine Kinase CK-MB (CK-2) Total Protein 12/13/19 12/13/19 12/13/19 16:42 17:34 19:38 WBC RBC Hgb Hct Dougherty % (Auto) Seg Neuts % (Manual) Lymphocytes % (Manual) Seg Neutrophils # Man Lymphocytes # (Manual) Monocytes # (Manual) VBG pH Sodium Potassium Chloride Carbon Dioxide BUN Creatinine Glucose POC Glucose 187 H 134 H 108 H Lactic Acid Calcium Phosphorus Alkaline Phosphatase Total Creatine Kinase CK-MB (CK-2) Total Protein 12/13/19 12/13/19 12/13/19 20:14 21:11 23:26 WBC RBC Hgb Hct Dougherty % (Auto) Seg Neuts % (Manual) Lymphocytes % (Manual) Seg Neutrophils # Man Lymphocytes # (Manual) Monocytes # (Manual) VBG pH Sodium Potassium Chloride Carbon Dioxide BUN Creatinine Glucose POC Glucose 122 H 151 H 132 H Lactic Acid Calcium Phosphorus Alkaline Phosphatase Total Creatine Kinase CK-MB (CK-2) Total Protein 12/14/19 12/14/19 12/14/19 00:04 00:40 01:20 WBC RBC Hgb Hct Dougherty % (Auto) Seg Neuts % (Manual) Lymphocytes % (Manual) Seg Neutrophils # Man Lymphocytes # (Manual) Monocytes # (Manual) VBG pH Sodium Potassium 3.1 L Chloride Carbon Dioxide 20 L BUN 4 L Creatinine 0.5 L Glucose 170 H POC Glucose 145 H 138 H Lactic Acid Calcium Phosphorus Alkaline Phosphatase Total Creatine Kinase CK-MB (CK-2) Total Protein 12/14/19 12/14/19 12/14/19 02:16 03:13 04:20 WBC RBC Hgb Hct Dougherty % (Auto) Seg Neuts % (Manual) Lymphocytes % (Manual) Seg Neutrophils # Man Lymphocytes # (Manual) Monocytes # (Manual) VBG pH Sodium Potassium Chloride Carbon Dioxide BUN Creatinine Glucose POC Glucose 146 H 131 H 114 H Lactic Acid Calcium Phosphorus Alkaline Phosphatase Total Creatine Kinase CK-MB (CK-2) Total Protein 12/14/19 12/14/19 12/14/19 05:14 05:42 05:46 WBC RBC Hgb Hct Dougherty % (Auto) Seg Neuts % (Manual) Lymphocytes % (Manual) Seg Neutrophils # Man Lymphocytes # (Manual) Monocytes # (Manual) VBG pH Sodium Potassium 2.8 L* Chloride Carbon Dioxide 21 L BUN 3 L Creatinine 0.5 L Glucose 141 H POC Glucose 107 H 121 H Lactic Acid Calcium Phosphorus Alkaline Phosphatase Total Creatine Kinase CK-MB (CK-2) Total Protein 12/14/19 12/14/19 12/14/19 07:54 09:03 12:01 WBC RBC Hgb Hct Dougherty % (Auto) Seg Neuts % (Manual) Lymphocytes % (Manual) Seg Neutrophils # Man Lymphocytes # (Manual) Monocytes # (Manual) VBG pH Sodium Potassium Chloride Carbon Dioxide BUN Creatinine Glucose POC Glucose 165 H 148 H 157 H Lactic Acid Calcium Phosphorus Alkaline Phosphatase Total Creatine Kinase CK-MB (CK-2) Total Protein 12/14/19 12/14/19 12/15/19 16:45 21:46 06:52 WBC RBC 5.19 H Hgb 14.5 H Hct 43.2 H Dougherty % (Auto) 10.3 H Seg Neuts % (Manual) Lymphocytes % (Manual) Seg Neutrophils # Man Lymphocytes # (Manual) Monocytes # (Manual) VBG pH Sodium Potassium Chloride Carbon Dioxide BUN Creatinine Glucose POC Glucose 199 H 149 H Lactic Acid Calcium Phosphorus Alkaline Phosphatase Total Creatine Kinase CK-MB (CK-2) Total Protein 12/15/19 12/15/19 06:52 07:56 WBC RBC Hgb Hct Dougherty % (Auto) Seg Neuts % (Manual) Lymphocytes % (Manual) Seg Neutrophils # Man Lymphocytes # (Manual) Monocytes # (Manual) VBG pH Sodium 132 L Potassium 3.1 L Chloride 89.8 L Carbon Dioxide 21 L BUN Creatinine 0.5 L Glucose 241 H POC Glucose 233 H Lactic Acid Calcium Phosphorus Alkaline Phosphatase Total Creatine Kinase CK-MB (CK-2) Total Protein Chest x-ray: report reviewed, image reviewed CT scan - chest: report reviewed, image reviewed Additional Studies: CHEST 1 VIEW 11:21 AM 12/12/19 INDICATION / CLINICAL INFORMATION: Shortness of breath. COMPARISON: 09/28/14. FINDINGS: SUPPORT DEVICES: None. HEART / MEDIASTINUM: The heart size and pulmonary vasculature are normal. LUNGS / PLEURA: No significant pulmonary or pleural abnormality. No pneumothorax. ADDITIONAL FINDINGS: No significant additional findings. IMPRESSION: No acute abnormality or significant change. CTA CHEST WITH IV CONTRAST 12/12/19 INDICATION / CLINICAL INFORMATION: MAIN: WEAKNESS, CHEST PAIN, SOB. 100 ML OMNIPAQUE 350. TECHNIQUE: Axial CT images were obtained through the chest after injection of 100 mL IV contrast. 3 plane MIP and/or 3D reconstructions were produced. All CT scans at this location are performed using CT dose reduction for ALARA by means of automated exposure control. COMPARISON: Chest radiograph earlier today. FINDINGS: PULMONARY ARTERIES: No pulmonary emboli. THORACIC AORTA: No significant abnormality. HEART: No significant abnormality. CORONARY ARTERIES: No significant calcification. PLEURA: No pleural effusion. No pneumothorax. LYMPH NODES: No significant adenopathy. LUNGS: No acute air space or interstitial disease. ADDITIONAL FINDINGS: None. UPPER ABDOMEN: No acute findings. SKELETAL STRUCTURES: No significant osseous abnormality. IMPRESSION: 1. No CT evidence for pulmonary embolism. 2. No acute findings.
[2019-12-15] MEDS: INSULIN LISPRO 100 UNIT/ML SUB-Q SCH ×2 (09:42→13:38)
[2019-12-15] MEDS: HEPARIN 5,000 UNIT/1 ML VIAL SUB-Q SCH (10:19)
[2019-12-15] MEDS: INSULIN NPH, HUMAN 100 UNIT/1 ML SUB-Q SCH (10:19)
[2019-12-15] MEDS ORDERED: POTASSIUM CHLORIDE ER 20 MEQ TAB PO SCH (10:30)
[2019-12-15 12:17] VITALS: BP 123/76
--- NOTE | 2019-12-15 12:56 | Discharge Summary ---
Providers - Providers Date of Admission: 12/12/19 11:54 Date of discharge: 12/15/19 Attending physician: FLAVIO LONGO 12/12/19 11:56 Consult to Physician [CONS] Routine Comment: Consulting Provider: RADHA HANKINS Physician Instructions: Reason For Exam: DKA on insulin drip Primary care physician: [facility], Hospitalization Condition: Serious Hospital course: 44-year-old female with HTN, DM presents to ED for evaluation for "not been feeling good" over the past 3 days and stated that she ran out of her insulin approximately 3 days ago. Patient reported polydipsia, polyuria, polyphagia, and generalized weakness. On presentation blood glucose was 500 with high anion gap, given iv fluid bolus in the ER, admitted to ICU on insulin drip. Patient was weaned off from insulin drip as BG improved and anion gap closed. Patient was continued on iv fluid, consistent carb diet, Placed on Long-acting insulin and SSI. Adjusted long acting insulin dose to better improve BG level, counselled for dietary and insulin regimen compliance. Patient was then discharged home in stable condition with outpt f/u. Discharge diagnosis: / SIRS - with organ dysfunction OSMAN due to DKA blood cx negative, monitor off abx for now / DKA (diabetic ketoacidoses) s/p DKA protocol: monitored at ICU with IV fluid resuscitation therapy, insulin drip, serial BMP, serial anion gap and serum potassium, off insulin drip now, cont SSI, long acting insulin and consistent carb diet / Noncompliance with medication regimen Patient counseled regarding medication noncompliance. Patient informed of increased risk of worsening symptoms, end organ damage, and even . Patient knowledges understanding instructions. /hypokalemia, cont to replete, monitor BMP, normal mg / Acute kidney injury, due to vasomotor nephropathy - resolved Cr was 1.6 on admission IV fluid resuscitation therapy, monitor urine output every shift, repeat BMP in a.m. to monitor serum creatinine. / Metabolic acidosis IV fluid resuscitation therapy, treat DKA, / DVT prophylaxis SCD to bilateral lower extremities while in bed, prophylactic heparin. Disposition: [id number] HOME UNDER HOME [facility] Time spent for discharge: 34 minutes Core Measure Documentation - Palliative Care Palliative Care/ Comfort Measures: Not Applicable - Core Measures Any of the following diagnoses?: none Exam - Constitutional Vitals: Temp Pulse Resp BP Pulse Ox 99.6 F 79 16 123/76 96 12/15/19 11:07 12/15/19 11:07 12/15/19 11:07 12/15/19 11:07 12/15/19 11:07 General appearance: Present: no acute distress, well-nourished - EENT Eyes: Present: PERRL ENT: hearing intact, clear oral mucosa - Neck Neck: Present: supple, normal ROM - Respiratory Respiratory effort: normal Respiratory: bilateral: CTA - Cardiovascular Heart Sounds: Present: S1 & S2. Absent: rub, click - Extremities Extremities: pulses symmetrical, No edema Peripheral Pulses: within normal limits - Abdominal General gastrointestinal: Present: soft, non-tender, non-distended, normal bowel sounds - Integumentary Integumentary: Present: clear, warm, dry - Musculoskeletal Musculoskeletal: gait normal, strength equal bilaterally - Psychiatric Psychiatric: appropriate mood/affect, intact judgment & insight - Neurologic Neurologic: CNII-XII intact, moves all extremities Plan Activity: advance as tolerated Weight Bearing Status: Weight Bear as Tolerated Diet: diabetic Special Instructions: record blood sugar diary Follow up with: JUAN RAMON SIDDIQUISTANFIELD MD KARRI [Primary Care Provider] - 7 Days GONZALEZ MARINO MD [Staff Physician] - 7 Days Prescriptions: Insulin NPH, Human [NovoLIN N] 15 unit SUB-Q BIDDIAB 30 Days
[2019-12-15] MEDS: FAMOTIDINE 20 MG TAB PO SCH (13:40)
[2019-12-15] MEDS ORDERED: POTASSIUM CHLORIDE ER 20 MEQ TAB PO ONE (13:53)
== END 2019-12-15 14:20 | disposition home or self-care (01) | DRG 871 ==
LOC: ED 10:32 → CC1 11:54 → 3A 12-14 16:05
PROVIDERS: ADMIT Internal Medicine; ATTEND Internal Medicine
PROC: 3E0234Z Introduction of Serum, Toxoid and Vaccine into Muscle, Percutaneous Approach (ICD-10-PCS; principal; 2019-12-13)
DX: A41.9 Sepsis, unspecified organism (principal); N17.0 Acute kidney failure with tubular necrosis; E10.10 Type 1 diabetes mellitus with ketoacidosis without coma; I10 Essential (primary) hypertension; E87.6 Hypokalemia; R63.1 Polydipsia; R35.8 Other polyuria; R63.2 Polyphagia; Z23 Encounter for immunization; Z79.4 Long term (current) use of insulin; Z83.3 Family history of diabetes mellitus; Z82.49 Family history of ischemic heart disease and other diseases of the circulatory system; Z91.14 Patient's other noncompliance with medication regimen
CPT/HCPCS: 36415; 71045; 71275; 80048; 80053; 81001; 82140; 82550; 82553; 82805; 82962; 83735; 83880; 84100; 84484; 85007; 85025; 85027; 87040; 90686; 90732; 93005; 93010; G0378; J0696; J1644; J1815; J2270; J2405; J3480; J7030; Q9967